=== PATIENT | male | born 1935 | race Caucasian/White ===

== ENCOUNTER 2024-10-07 10:01 | Outpatient (CLI) | payer MEDICARE, BC, SELFPAY | END 2024-10-07 10:02 | disposition home or self-care (01) | LOC: AMB 10-20 00:59 | PROVIDERS: Visit Provider Emergency Medicine | DX: I95.9 Hypotension, unspecified (principal) | CPT/HCPCS: A0425; A0427 ==

== ENCOUNTER 2024-10-30 16:17 | Inpatient (IN) | payer MEDICARE, BC, SELFPAY ==
[2024-10-30] VITALS (45 sets, daily range): BP systolic 81–107; BP diastolic 40–65; PULSE 63–96; RESP 16–18; TEMP 36.4–37.2; O2SAT 89–97; BMI 29.0; BMI 29.2
--- NOTE | 2024-10-30 16:36 | ED.GENADULT ---
HPI - General Adult General Time Seen by Provider: 16:37 Date Seen: 10/30/24 Chief complaint: Unspecified Complaint, Adult Stated complaint: Sent from [facility], elev WBC, lack of appetite Time Seen by Provider: 10/30/24 16:36 Source: patient, family, RN notes reviewed and old records reviewed Mode of arrival: EMS Limitations: no limitations History of Present Illness HPI narrative: 89-year-old male who presents today from detention with concern for decreased appetite, and labs today with elevated white blood cell count. Patient is here with son who assists with history. Patient self has no complaints. He denies cough, nasal congestion, fever, chills, weakness, nausea, vomiting, diarrhea, abdominal pain, chest pain, shortness of breath. Related Data Home Medications ?Medication ?Instructions ?Recorded ?Confirmed digoxin 125 mcg (0.125 mg) tablet 125 mcg PO DAILY 10/30/24 10/30/24 furosemide 40 mg tablet 40 mg PO DAILY 10/30/24 10/30/24 glimepiride 2 mg tablet 2 mg PO DAILY 10/30/24 10/30/24 metformin 1,000 mg tablet 500 mg PO BID 10/30/24 10/30/24 metoprolol tartrate 100 mg tablet 200 mg PO BID 10/30/24 10/30/24 polyethylene glycol 3350 17 17 g PO DAILY 10/30/24 10/30/24 gram/dose oral powder (ClearLax) sennosides 8.6 mg capsule (senna) 8.6 mg PO BID 10/30/24 10/30/24 simvastatin 80 mg tablet 80 mg PO DAILY 10/30/24 10/30/24 warfarin 5 mg tablet mg PO 10/30/24 Allergies Allergy/AdvReac Type Severity Reaction Status Date / Time No Known Drug Allergies Allergy Verified 10/30/24 16:35 Exam Narrative: Exam Narrative: General: Well-developed and well-nourished, no acute distress Head: Atraumatic and normocephalic Eyes: Pupils are equal reactive, extraocular motions intact, conjunctiva clear ENT: External nose and ears are normal, posterior pharynx without erythema or exudate Neck: No midline cervical tenderness, full spontaneous range of motion the neck, trachea midline, no adenopathy Heart: Irregular with 3 of 6 systolic murmur Lungs: Clear to auscultation bilaterally without wheezes or crackles Abdomen: Soft, nontender, nondistended with active bowel sounds Musculoskeletal: No tenderness, deformity, or edema Neurologic: Awake, alert, and oriented x3, no gross focal neurologic deficits, cranial nerves intact as tested Psych: Mood and affect are appropriate Skin: No rashes. 2 cm ulcer on the 5th metatarsal head on the right, black eschar but no surrounding erythema or purulent drainage Const: Vital Signs, click to edit/add: Vital Signs - 24 hr 10/30/24 16:25 10/30/24 17:42 10/30/24 17:43 Temperature 98.9 F Pulse Rate 90 82 Pulse Rate [Pulse Oximeter] 85 Respiratory Rate 16 Blood Pressure 98/56 L Blood Pressure [Ri ght Upper Arm] 92/55 L Pulse Oximetry 94 93 90 Oxygen Delivery Me thod Room Air 10/30/24 17:45 10/30/24 17:48 10/30/24 17:49 Temperature Pulse Rate 88 89 96 Pulse Rate [Pulse Oximeter] Respiratory Rate Blood Pressure 89/64 L Blood Pressure [Ri ght Upper Arm] Pulse Oximetry 90 90 90 Oxygen Delivery Me thod 10/30/24 18:00 10/30/24 18:01 10/30/24 18:02 Temperature Pulse Rate 95 86 82 Pulse Rate [Pulse Oximeter] Respiratory Rate Blood Pressure 97/59 L 85/40 L Blood Pressure [Ri ght Upper Arm] Pulse Oximetry 92 91 94 Oxygen Delivery Me thod 10/30/24 18:12 10/30/24 18:15 10/30/24 18:22 Temperature Pulse Rate 79 92 82 Pulse Rate [Pulse Oximeter] Respiratory Rate Blood Pressure 94/49 L 89/46 L Blood Pressure [Ri ght Upper Arm] Pulse Oximetry 91 94 92 Oxygen Delivery Me thod 10/30/24 18:43 10/30/24 18:44 10/30/24 18:45 Temperature Pulse Rate 92 84 88 Pulse Rate [Pulse Oximeter] Respiratory Rate Blood Pressure 96/52 L Blood Pressure [Ri ght Upper Arm] Pulse Oximetry 95 92 94 Oxygen Delivery Me thod 10/30/24 18:52 10/30/24 18:53 10/30/24 19:00 Temperature Pulse Rate 86 85 74 Pulse Rate [Pulse Oximeter] Respiratory Rate Blood Pressure 88/61 L Blood Pressure [Ri ght Upper Arm] Pulse Oximetry 89 [address] thod 10/30/24 19:02 Temperature Pulse Rate 81 Pulse Rate [Pulse Oximeter] Respiratory Rate Blood Pressure 91/50 L Blood Pressure [Ri ght Upper Arm] Pulse Oximetry [address] thod Course Course ED Course: Reviewed most recent hospital admission from October 07 when patient was admitted for 8 days with small-bowel obstruction, also at that time found to have hypotension with systolic blood pressure in the 80s, at time of discharge blood pressure 120-130/60-70, it appears that amlodipine and lisinopril were both discontinued at that visit. I also reviewed prior admission from September 23 when patient was admitted with an ischemic stroke with subsequent small hemorrhagic transformation. Reviewed outpatient labs today which demonstrated white blood cell count 16.6, hemoglobin 12.8, INR 1.6, normal basic panel, normal urinalysis. Patient presents today with concern for decreased appetite taste in hypotension. On initial exam here, hypotensive but otherwise finally stable. Patient has no complaints and no localizing symptoms including no abdominal tenderness, no respiratory distress, clear lungs. Due to hypotension and elevated white blood cell count, concern for sepsis, lactate and procalcitonin ordered. Chest x-ray ordered as well. Chest x-ray independently interpreted by me without acute infiltrate or effusion. Reevaluation(s) Time of Reevaluation #1: 18:03 Reevaluation #1: Monitor shows run of about 8 beats of what could be ventricular tachycardia, patient was asymptomatic during this time. Labs are pending. Patient remains hypotensive. Additional fluid bolus ordered Time of Reevaluation #2: 18:16 Reevaluation #2: Labs independently interpreted by me with lactate 2.1. Given leukocytosis and hypotension, although patient is well-appearing, concern for sepsis. Zosyn and vancomycin ordered an anticipated admission. Time of Reevaluation #3: 19:02 Reevaluation #3: Labs independently interpreted by me with normal hepatic panel,, elevated procalcitonin at [address] scan of the abdomen and pelvis independently interpreted by me without acute findings, CT scan of the chest independently interpreted by me without acute abnormality. Care discussed with Bethany Gutierrez PA-C hospitalist for admission. Additional Reevaluation(s): 8:20 p.m. reviewed radiology interpretation of CT scan which is not demonstrate acute findings other than some prominent nondilated loops of small bowel in the abdomen possibly reflect enteritis, patient with no vomiting, abdominal pain, or diarrhea. Patient updated with findings and plan, pressures remain little bit low and did update hospitalist that patient may need pressors. He has received 1.5 L of fluid so far, additional fluids ordered. Vital Signs Vital signs: Initial Vital Signs Temperature 98.9 F 10/30/24 16:25 Temperature Source Temporal Artery Scan 10/30/24 16:25 Pulse Rate 85 10/30/24 16:25 Respiratory Rate 16 10/30/24 16:25 Blood Pressure 92/55 L 10/30/24 16:25 Blood Pressure Mean 67 L 10/30/24 16:25 Blood Pressure Position Sitting 10/30/24 16:25 Pulse Oximetry 94 10/30/24 16:25 Oxygen Delivery Method Room Air 10/30/24 16:25 Vital Signs Temperature 98.9 F 10/30/24 16:25 Pulse Rate 85 10/30/24 16:25 Respiratory Rate 16 10/30/24 16:25 Blood Pressure 92/55 L 10/30/24 16:25 Pulse Oximetry 94 10/30/24 16:25 Oxygen Delivery Method Room Air 10/30/24 16:25 Temperature 98.9 F 10/30/24 16:25 Pulse Rate 81 10/30/24 19:02 Respiratory Rate 16 10/30/24 16:25 Blood Pressure 91/50 L 10/30/24 19:02 Pulse Oximetry 93 10/30/24 19:02 Oxygen Delivery Method Room Air 10/30/24 16:25 Medications Administered Medications: Generic Name Dose Route Start Last Admin Trade Name Freq PRN Reason Stop Dose Admin Sodium Chloride 1,000 mls @ 1,000 mls/hr 10/30/24 20:00 10/30/24 20:05 0.9 % Sodium Chloride 1000 Ml IV 10/30/24 20:59 1,000 mls/hr .Q1H CHUY Administration Discontinued Medications Generic Name Dose Route Start Last Admin Trade Name Freq PRN Reason Stop Dose Admin Sodium Chloride 500 mls @ 500 mls/hr 10/30/24 16:50 10/30/24 18:15 0.9 % Sodium Chloride 500 Ml IV 10/30/24 17:49 Infused .Q1H ONE Infusion Sodium Chloride 1,000 mls @ 1,000 mls/hr 10/30/24 18:15 10/30/24 19:00 0.9 % Sodium Chloride 1000 Ml IV 10/30/24 19:14 Infused .Q1H CHUY Infusion Piperacillin Sod/Tazobactam 100 mls @ 100 mls/hr 10/30/24 18:16 10/30/24 19:45 Sod 3.375 gm/ Sodium Chloride IVPB 10/30/24 18:17 Infused ONCE ONE Infusion Vancomycin HCl 2,000 mg/ 520 mls @ 260 mls/hr 10/30/24 18:16 10/30/24 19:45 Sodium Chloride IVPB 10/30/24 20:15 260 mls/hr ONCE ONE Administration Protocol Medical Decision Making Lab Data Labs: Lab Results 10/30/24 Range/Units 17:50 Lactate 2.1 H (0.5-1.9) mmol/L Magnesium 2.0 (1.5-2.6) mg/dL Total Bilirubin 0.8 (0.1-1.5) mg/dL Direct Bilirubin 0.3 (0.0-0.5) mg/dL AST 59 H (12-35) U/L ALT 23 (4-50) U/L Alkaline Phosphatase 80 (40-150) U/L Total Protein 6.7 (6.0-8.3) g/dL Albumin 3.5 (3.3-5.0) g/dL Lipase 121 (23-300) U/L Procalcitonin 37.90 H (<0.50) ng/mL Critical Care Time Critical Care Time Critical Care Time: Yes (Sepsis, multiple fluid boluses and multiple antibiotic) Attestation: The patient required my highest level preparedness to intervene emergently and I personally spent this critical care time directly and personally managing the patient. This critical care time included: Obtaining a history; Examining the patient; Pulse oximetry; Ordering and reviewing of studies; Arranging urgent treatment with development of a management plan; Evaluation of patients response to treatment; Frequent reassessment discussions with other providers. This critical care time was performed to assess and manage the high probability of imminent life-threatening deterioration that could result in multiorgan failure. It was exclusive of separate billable procedures and treating other patients and teaching time. Total Critical Care Time in Minutes: 90 Discharge Plan Discharge Clinical Impression: Sepsis, Anticoagulated on Coumadin, Diabetes type 2, H/O: CVA (cerebrovascular accident), Diabetic foot ulcer Patient Disposition: Admitted As Observation
--- NOTE | 2024-10-30 16:49 | CRLHL7_ITS ---
For Patients: As a result of the Century Cures Act, medical imaging exams and procedure reports are released immediately into your electronic medical record. You may view this report before your referring provider. If you have questions, please contact your health care provider. INDICATION: Weakness, leukocytosis TECHNIQUE: Chest radiograph 2 views COMPARISON: None FINDINGS: The sensitivity and specificity of the exam are moderately limited by the patient`s body habitus. Mediastinum: The central pulmonary arteries are near the upper limits of normal in size. Mild to moderate cardiomegaly is noted. Lung: Minimal bibasilar atelectasis is seen. No sign of pleural effusion seen. No pneumothorax is identified. Bone and Soft tissue: Unremarkable for age. IMPRESSION: 1. Mild to moderate cardiomegaly is noted. Dictated by Ramírez Abbott MD @ 10/30/2024 5:19:57 PM Dictated by: Ramírez Abbott MD @ 10/30/2024 17:19:58 (Electronically Signed)
[2024-10-30] MEDS: 0.9 % SODIUM CHLORIDE 500 ML 500 ML IV (17:40)
[2024-10-30] MEDS: 0.9 % SODIUM CHLORIDE 1000 ml 1,000 ML IV ×2 (18:05→20:05)
[2024-10-30 18:08] LABS: Lactate* 2.1 mmol/L (0.5-1.9)
--- NOTE | 2024-10-30 18:10 | CRLHL7_ITS ---
For Patients: As a result of the 21st Century Cures Act, medical imaging exams and procedure reports are released immediately into your electronic medical record. You may view this report before your referring provider. If you have questions, please contact your health care provider. INDICATION: Sepsis. TECHNIQUE: CT chest, abdomen, and pelvis acquired with mL Isovue 370 contrast. COMPARISON: None available. FINDINGS: CHEST: Lungs and pleura: Few scattered punctate calcified and noncalcified pulmonary nodules measure up to 0.4 cm. No focal consolidation. Heart and vessels: Mild cardiomegaly, no pericardial effusion. Atherosclerotic coronary artery calcifications. No large central pulmonary embolus. Thyroid and lower neck: No suspicious thyroid nodule. Mediastinum/maira: No lymphadenopathy. Chest wall: No axillary lymphadenopathy. ABDOMEN/PELVIS: Liver: Scattered punctate calcified granulomas. Indeterminate 1.9 cm hypodense lesion in segment 7 (series 7, image 56). Gallbladder and bile ducts: Unremarkable. Pancreas: Unremarkable. Spleen: Wedge-shaped hypodensity in the upper pole of the spleen. There is overlying capsular retraction. Adrenal glands: Indeterminate bilateral adrenal nodules, measuring up to 1.3 cm on the right. Kidneys: Kidneys enhance symmetrically, without hydronephrosis. Too small to characterize hypodense bilateral renal lesions. Retroperitoneum: No lymphadenopathy. Bowel and mesentery: Bowel is not obstructed. No significant ascites, no pneumoperitoneum. Normal appendix. Few loops of prominent nondilated small bowel in the left lower quadrant of the abdomen, nonspecific, may reflect enteritis. Bladder: Unremarkable for degree of distention. Reproductive organs: Post prostatectomy. Pelvic lymph nodes: Prior pelvic lymph node dissection. No pathologically enlarged lymph node. Vessels: Atherosclerotic calcifications. Abdominal wall: No acute abdominal wall abnormality. Bones: Dense sclerotic lesions in the bilateral sacral ala. Few scattered additional punctate sclerotic lesions throughout the axial and appendicular skeleton. Multilevel degenerative changes of the spine. Bones are osteopenic. Bilateral L5 pars defects. IMPRESSION: 1. Few loops of prominent but nondilated small bowel in the left lower quadrant of the abdomen, nonspecific, may reflect enteritis. 2. Wedge-shaped hypodensity in the upper pole of the spleen, which may reflect a small splenic infarct. However, there is also overlying capsular retraction, suggesting that this is not an acute process. Comparison with any prior studies would be helpful. 3. Indeterminate 1.9 cm hypodense lesion in segment 7 of the liver. Indeterminate adrenal nodules measuring up to 1.3 cm on the right. Recommend further evaluation with MRI, on a nonemergent basis. 4. Few scattered punctate pulmonary nodules measuring up to 0.4 cm. Recommend follow-up CT chest in 3-6 months. 5. Scattered small sclerotic osseous lesions throughout the axial and appendicular skeleton. This may reflect multiple bone islands or osseous metastases. Again, comparison with prior studies would be helpful. Please note that all CT scans at this facility use dose modulation, iterative reconstruction, and/or weight-based dosing when appropriate to reduce radiation dose to as low as reasonably achievable. Dictated by Kamran Baker MD @ 10/30/2024 8:06:21 PM (Electronically Signed)
[2024-10-30 18:27] LABS: Albumin* 3.5 g/dL (3.3-5.0)
[2024-10-30 18:29] LABS: Alanine Aminotransferase* 23 U/L (4-50); Alkaline Phosphatase* 80 U/L (40-150); Aspartate Amino Transferase* 59 U/L (12-35); Bilirubin Direct* 0.3 mg/dL (0.0-0.5); Bilirubin Total* 0.8 mg/dL (0.1-1.5); Total Protein* 6.7 g/dL (6.0-8.3)
[2024-10-30 18:30] LABS: Lipase* 121 U/L (23-300)
[2024-10-30] MEDS: PIPERACILLIN/TAZOBACTAM 3.375 GM in 0.9 % SODIUM CHLORIDE Mini-bag 100 ML IVPB (18:44)
--- NOTE | 2024-10-30 19:49 | ED.NURSE ---
Received call from [facility] requesting update on pt. Informed February - facility nurse that pt will be admitted.
--- NOTE | 2024-10-30 21:02 | P.IMHP_ITS ---
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 Patient was sent to the ED from [facility] where labs were drawn today with an elevated WBC. Only complaint patient can offer is a decreased appetite. Otherwise denies headache or dizziness. Denies recent fevers or chills. Denies chest pain or shortness of breath. Denies cough or congestion. Denies abdominal pain, nausea, vomiting or diarrhea. Had a normal bowel movement this morning. Denies flank pain. Denies change in urination or UTI symptoms. Denies extremity pain. In the ED, patient was noted to have a WBC of 16.64, a lactate of 2.1, and a procalcitonin of 37.9. Urinalysis essentially unremarkable. CT chest/abdomen/pelvis essentially unremarkable for acute infectious etiology. BC x2 and urine culture are pending. Patient noted to be hypotensive, with SBP in the 80s, MAP > 63. Patient was started on IV vancomycin and Zosyn. Patient is a nonsmoker. Drinks 1 beer maybe per week. Request to be DNR/DNI. Of note, patient hospitalized at [facility] 09/23-09/26 with thrombolytics stroke to the left occipital lobe. Discharged to [facility] for cares. Hospitalized 10/07-10/15 at [facility] with mechanical small bowel obstruction which resolved with conservative therapy. Review of Systems Narrative: REVIEW OF SYSTEMS: Complete review of systems performed and negative unless otherwise stated in HPI or below. [facility] Medical History (Updated 10/31/24 @ 00:23 by Bethany Chandra PA-C) Cardiomegaly ?I51.7 - Cardiomegaly (ICD-10) Basal cell carcinoma ?C44.91 - Basal cell carcinoma of skin, unspecified (ICD-10) SBO (small bowel obstruction) ?K56.609 - Unspecified intestinal obstruction, unspecified as to partial versus complete obstruction (ICD-10) Obesity (BMI 30-39.9) ?E66.9 - Obesity, unspecified (ICD-10) Hyperlipidemia ?E78.5 - Hyperlipidemia, unspecified (ICD-10) Atherosclerotic heart disease of [place] coronary artery without angina pectoris ?I25.10 - Atherosclerotic heart disease of [place] coronary artery without angina pectoris (ICD-10) Ischemic stroke ?I63.9 - Cerebral infarction, unspecified (ICD-10) Hypertension ?I10 - Essential (primary) hypertension (ICD-10) Atrial fibrillation ?I48.91 - Unspecified atrial fibrillation (ICD-10) (HFpEF) heart failure with preserved ejection fraction ?I50.30 - Unspecified diastolic (congestive) heart failure (ICD-10) Social History What is your current living situation?: I presently have a place to live Problems where you live: no known problems Problems where you live details: na In the past 12 months, utilities in danger of being shut off: no In the past 12 mos, have been you worried that your food would run out before you had money to buy more?: never true In the past 12 mos, the food you bought just didn't last and you didn't have money to buy more?: never true Smoking Status: Never smoker Do you use any of these nicotine containing products: None How often do you have a drink containing alcohol: monthly or less Alcohol type: beer How many standard drinks containing alcohol do you have on a typical day: 1 or 2 How often do you have six or more drinks on one occasion: Never AUDIT-C Alcohol total score: 1 Non-prescribed substance use: denies use How often does anyone, including family, friends and others, physically hurt you : never How often does anyone, including family, friends and others, insult or talk down to you: never How often does anyone, including family, friends and others, threaten you with harm: never How often does anyone, including family, friends and others, scream or curse at you: never Meds Home Medications and Allergies Home Medications ?Medication ?Instructions ?Recorded ?Confirmed ?Type digoxin 125 mcg (0.125 mg) tablet 125 mcg PO DAILY 10/30/24 10/30/24 History furosemide 40 mg tablet 40 mg PO DAILY 10/30/24 10/30/24 History glimepiride 2 mg tablet 2 mg PO DAILY 10/30/24 10/30/24 History metformin 1,000 mg tablet 500 mg PO BID 10/30/24 10/30/24 History metoprolol tartrate 100 mg tablet 200 mg PO BID 10/30/24 10/30/24 History polyethylene glycol 3350 17 17 g PO DAILY 10/30/24 10/30/24 History gram/dose oral powder (ClearLax) sennosides 8.6 mg capsule (senna) 8.6 mg PO BID 10/30/24 10/30/24 History simvastatin 80 mg tablet 80 mg PO DAILY 10/30/24 10/30/24 History warfarin 5 mg tablet mg PO 10/30/24 History Allergies Allergy/AdvReac Type Severity Reaction Status Date / Time No Known Drug Allergies Allergy Verified 10/30/24 16:35 Exam Narrative: Exam Narrative: PHYSICAL EXAM General: Pleasant, conversant, NAD HEENT: Normocephalic, atraumatic, sclera white, EOMI, oral mucosa moist Cardiovascular: RRR, S1S2. No pitting edema Pulmonary: CTA bilaterally without rhonchi, rales, expiratory wheezes. No dyspnea on room air Abdominal: Soft, nondistended, NTTP Neurological: Alert, answering questions appropriately, cranial nerves intact, no focal findings Extremities: Right foot with ulceration x2 plantar surface. Eschar lateral ulcer. Dry without drainage or bleeding. Skin: Warm, dry. Const: Vital Signs, click to edit/add: Vital Signs - 24 hr 10/30/24 16:25 10/30/24 17:42 10/30/24 17:43 Temperature 98.9 F Pulse Rate 90 82 Pulse Rate [Pulse Oximeter] 85 Respiratory Rate 16 Blood Pressure 98/56 L Blood Pressure [Ri ght Upper Arm] 92/55 L Pulse Oximetry 94 93 90 Oxygen Delivery Me thod Room Air 10/30/24 17:45 10/30/24 17:48 10/30/24 17:49 Temperature Pulse Rate 88 89 96 Pulse Rate [Pulse Oximeter] Respiratory Rate Blood Pressure 89/64 L Blood Pressure [Ri ght Upper Arm] Pulse Oximetry 90 90 90 Oxygen Delivery Me thod 10/30/24 18:00 10/30/24 18:01 12/10/24 18:02 Temperature Pulse Rate 95 86 82 Pulse Rate [Pulse Oximeter] Respiratory Rate Blood Pressure 97/59 L 85/40 L Blood Pressure [Ri ght Upper Arm] Pulse Oximetry 92 91 94 Oxygen Delivery Me thod 10/30/24 18:12 10/30/24 18:15 10/30/24 18:22 Temperature Pulse Rate 79 92 82 Pulse Rate [Pulse Oximeter] Respiratory Rate Blood Pressure 94/49 L 89/46 L Blood Pressure [Ri ght Upper Arm] Pulse Oximetry 91 94 92 Oxygen Delivery Me thod 10/30/24 18:43 10/30/24 18:44 10/30/24 18:45 Temperature Pulse Rate 92 84 88 Pulse Rate [Pulse Oximeter] Respiratory Rate Blood Pressure 96/52 L Blood Pressure [Ri ght Upper Arm] Pulse Oximetry 95 92 94 Oxygen Delivery Me thod 10/30/24 18:52 10/30/24 18:53 10/30/24 19:00 Temperature Pulse Rate 86 85 74 Pulse Rate [Pulse Oximeter] Respiratory Rate Blood Pressure 88/61 L Blood Pressure [Ri ght Upper Arm] Pulse Oximetry 89 95 89 Oxygen Delivery Me thod 10/30/24 19:02 10/30/24 19:03 10/30/24 19:12 Temperature Pulse Rate 81 77 86 Pulse Rate [Pulse Oximeter] Respiratory Rate Blood Pressure 91/50 L 93/57 L Blood Pressure [Ri ght Upper Arm] Pulse Oximetry 93 96 95 Oxygen Delivery Me thod 10/30/24 19:15 10/30/24 19:22 10/30/24 19:30 Temperature Pulse Rate 75 85 73 Pulse Rate [Pulse Oximeter] Respiratory Rate Blood Pressure 90/53 L Blood Pressure [Ri ght Upper Arm] Pulse Oximetry 92 94 94 Oxygen Delivery Me thod 10/30/24 19:34 10/30/24 19:41 10/30/24 19:45 Temperature Pulse Rate 82 81 78 Pulse Rate [Pulse Oximeter] Respiratory Rate Blood Pressure 89/52 L Blood Pressure [Ri ght Upper Arm] Pulse Oximetry 91 93 96 Oxygen Delivery Me thod 10/30/24 19:51 10/30/24 20:00 10/30/24 20:04 Temperature Pulse Rate 74 79 82 Pulse Rate [Pulse Oximeter] Respiratory Rate Blood Pressure 91/48 L Blood Pressure [Ri ght Upper Arm] Pulse Oximetry 92 92 94 Oxygen Delivery Me thod 10/30/24 20:07 10/30/24 20:11 10/30/24 20:15 Temperature Pulse Rate 83 77 73 Pulse Rate [Pulse Oximeter] Respiratory Rate Blood Pressure 95/51 L 96/59 L Blood Pressure [Ri ght Upper Arm] Pulse Oximetry 94 95 96 Oxygen Delivery Me thod 10/30/24 20:21 10/30/24 20:30 10/30/24 20:31 Temperature Pulse Rate 72 74 76 Pulse Rate [Pulse Oximeter] Respiratory Rate Blood Pressure 99/62 107/65 Blood Pressure [Ri ght Upper Arm] Pulse Oximetry 93 90 97 Oxygen Delivery Me thod 10/30/24 20:45 Temperature 98.9 F Pulse Rate Pulse Rate [Pulse Oximeter] Respiratory Rate Blood Pressure Blood Pressure [Ri ght Upper Arm] Pulse Oximetry Oxygen Delivery Me thod Hospitalist - H&P: Result Labs Labs: Liver Function 10/30/24 Range/Units 17:50 Total Bilirubin 0.8 (0.1-1.5) mg/dL Direct Bilirubin 0.3 (0.0-0.5) mg/dL AST 59 H (12-35) U/L ALT 23 (4-50) U/L Alkaline Phosphatase 80 (40-150) U/L Albumin 3.5 (3.3-5.0) g/dL Imaging CT Chest/Ab/Pelvis: Attestation: I have reviewed the pertinent imaging results. Radiologist's impression: CHEST: Lungs and pleura: Few scattered punctate calcified and noncalcified pulmonary nodules measure up to 0.4 cm. No focal consolidation. Heart and vessels: Mild cardiomegaly, no pericardial effusion. Atherosclerotic coronary artery calcifications. No large central pulmonary embolus. Thyroid and lower neck: No suspicious thyroid nodule. Mediastinum/maira: No lymphadenopathy. Chest wall: No axillary lymphadenopathy. ABDOMEN/PELVIS: Liver: Scattered punctate calcified granulomas. Indeterminate 1.9 cm hypodense lesion in segment 7 (series 7, image 56). Gallbladder and bile ducts: Unremarkable. Pancreas: Unremarkable. Spleen: Wedge-shaped hypodensity in the upper pole of the spleen. There is overlying capsular retraction. Adrenal glands: Indeterminate bilateral adrenal nodules, measuring up to 1.3 cm on the right. Kidneys: Kidneys enhance symmetrically, without hydronephrosis. Too small to characterize hypodense bilateral renal lesions. Retroperitoneum: No lymphadenopathy. Bowel and mesentery: Bowel is not obstructed. No significant ascites, no pneumoperitoneum. Normal appendix. Few loops of prominent nondilated small bowel in the left lower quadrant of the abdomen, nonspecific, may reflect enteritis. Bladder: Unremarkable for degree of distention. Reproductive organs: Post prostatectomy. Pelvic lymph nodes: Prior pelvic lymph node dissection. No pathologically enlarged lymph node. Vessels: Atherosclerotic calcifications. Abdominal wall: No acute abdominal wall abnormality. Bones: Dense sclerotic lesions in the bilateral sacral ala. Few scattered additional punctate sclerotic lesions throughout the axial and appendicular skeleton. Multilevel degenerative changes of the spine. Bones are osteopenic. Bilateral L5 pars defects. IMPRESSION: 1. Few loops of prominent but nondilated small bowel in the left lower quadrant of the abdomen, nonspecific, may reflect enteritis. 2. Wedge-shaped hypodensity in the upper pole of the spleen, which may reflect a small splenic infarct. However, there is also overlying capsular retraction, suggesting that this is not an acute process. Comparison with any prior studies would be helpful. 3. Indeterminate 1.9 cm hypodense lesion in segment 7 of the liver. Indeterminate adrenal nodules measuring up to 1.3 cm on the right. Recommend further evaluation with MRI, on a nonemergent basis. 4. Few scattered punctate pulmonary nodules measuring up to 0.4 cm. Recommend follow-up CT chest in 3-6 months. 5. Scattered small sclerotic osseous lesions throughout the axial and appendicular skeleton. This may reflect multiple bone islands or osseous metastases. Again, comparison with prior studies would be helpful. Chest x-ray: Attestation: I have reviewed the pertinent imaging results. Radiologist's impression: FINDINGS: The sensitivity and specificity of the exam are moderately limited by the patient`s body habitus. Mediastinum: The central pulmonary arteries are near the upper limits of normal in size. Mild to moderate cardiomegaly is noted. Lung: Minimal bibasilar atelectasis is seen. No sign of pleural effusion seen. No pneumothorax is identified. Bone and Soft tissue: Unremarkable for age. IMPRESSION: 1. Mild to moderate cardiomegaly is noted. Assessment and Plan Assessment and plan (1) Sepsis: Problem comment: -WBC 16.64 with left shift, lactate 2.1 improved to 1.0 following IVF, SBP < 90 -source not yet identified. CXR, CT chest abdomen pelvis without acute etiology. UA unremarkable. Suspect possible source from right foot or possible bacteremia -continue IV vancomycin and Zosyn -BC x2 pending, UC pending -has received 3 L IVF, continue maintenance fluids 100 mL, 250 mL bolus p.r.n. monitoring for fluid overload -consider starting pressors, contacting hospital service if SBP x2 < 90 or MAP < 60 as discussed with nursing staff Status: Acute (2) Hypotension: Problem comment: -in setting of sepsis -history of hypotension in previous hospitalizations as well which responded to IVF -has received 3 L IVF, continue maintenance fluids, bolus p.r.n., monitoring for fluid overload -consider starting pressors, contacting hospital service if SBP x2 < 90 or MAP < 60 as discussed with nursing staff Status: Acute (3) Diabetic foot ulcer: Problem comment: -plantar surface right foot. Mild erythema noted dorsal aspect -evaluated by Podiatry at [facility] during hospitalization and of September. Both of these were debrided. They did not appear infected clinically or by x-ray. The fifth MTPJ callus did probe to 0.3 cm after debridement. He had palpable pedal pulses. Recommending boot and follow-up with Dr. Garcia montejo as scheduled on 11/22/2023 in [place]. -MRI in the morning -podiatry consult -continue vancomycin and Zosyn Status: Acute (4) (HFpEF) heart failure with preserved ejection fraction: Problem comment: Echocardiogram 09/24/2024 Final Impressions: 1. Normal LV size, borderline wall thickness, estimated EF of 55 - 60%. 2. Normal RV size and systolic function. 3. Severe biatrial enlargement. 4. 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 5. The mitral valve is normal, moderate regurgitation. 6. Moderate-severe tricuspid regurgitation. 7. IVC is not well-visualized: unable to estimate RA and PA pressures. 8. 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 -monitor for fluid overload in setting of fluid resuscitation. Holding home furosemide in setting of hypotension Status: Acute (5) Hypertension: Problem comment: -hold metoprolol and furosemide for now, resuming when pressures improve Status: Acute (6) Hyperlipidemia: Problem comment: -continue statin Status: Acute (7) Diabetes type 2: Problem comment: -most recent A1c 6.3 -hold metformin, continue glimepiride -glucose checks ACHS, ISS Status: Acute (8) Atrial fibrillation: Problem comment: -continue digoxin -continue warfarin, pharmacy to dose. INR 1.6 on admission. -telemetry Status: Acute (9) Anticoagulated on Coumadin: Problem comment: -pharmacy to dose. 2.5mg given on 10/30 Status: Acute (10) Cardiomegaly: Problem comment: -noted on CXR 10/30 Status: Acute (11) Pulmonary nodules: Problem comment: -CT shows Few scattered punctate pulmonary nodules measuring up to 0.4 cm. Recommend follow-up CT chest in 3-6 months. Status: Acute (12) Lesion of liver: Problem comment: -CT shows Indeterminate 1.9 cm hypodense lesion in segment 7 of the liver. Indeterminate adrenal nodules measuring up to 1.3 cm on the right. Recommend further evaluation with MRI, on a nonemergent basis. Status: Acute (13) Adrenal nodule: Problem comment: -CT shows Indeterminate 1.9 cm hypodense lesion in segment 7 of the liver. Indeterminate adrenal nodules measuring up to 1.3 cm on the right. Recommend further evaluation with MRI, on a nonemergent basis. Status: Acute Total Time Spent Total Time Spent: Total time spent caring for the patient today was 100 minutes. This includes time spent for the visit reviewing the chart, time spent during the visit, time spent after the visit and documentation and planning in coordination of care.
--- NOTE | 2024-10-30 21:06 | ED.NURSE ---
Pt report given to bruce LION. Pt to CCU2.
[2024-10-30] MEDS: 0.9 % SODIUM CHLORIDE 1000 ml 1,000 ML 150 ML IV (22:04)
[2024-10-30] MEDS: SODIUM CHLORIDE 0.9 % (FLUSH) 10 ML SYRINGE 5 ML IVF (22:06)
[2024-10-30] MEDS: WARFARIN 3 MG TABLET PO (23:40)
[2024-10-31] VITALS (33 sets, daily range): BP systolic 73–137; BP diastolic 40–91; PULSE 66–102; RESP 16–20; TEMP 36.7–37.2; O2SAT 90–96
[2024-10-31] MEDS: 0.9 % SODIUM CHLORIDE 1000 ml 1,000 ML 100 ML IV ×2 (00:16→13:56)
[2024-10-31] MEDS: PIPERACILLIN/TAZOBACTAM 3.375 GM in 0.9 % SODIUM CHLORIDE Mini-bag 100 ML IVPB ×4 (02:02→20:11)
[2024-10-31] MEDS: 0.9 % SODIUM CHLORIDE 250 ml 250 ML IV (03:04)
--- NOTE | 2024-10-31 05:00 | PC.NURSE ---
Pt slept well during night. Pt denies pain, chest pain, headache, abd pain, N/V. ambulating to br with walker/SBA and tolerates activity very well. BP stable with SBP >90 and MAP >65 during night. tolerating PO intake.
--- NOTE | 2024-10-31 06:00 | CRLHL7_ITS ---
For Patients: As a result of the Century Cures Act, medical imaging exams and procedure reports are released immediately into your electronic medical record. You may view this report before your referring provider. If you have questions, please contact your health care provider. EXAM: MRI OF THE RIGHT FOOT, WITHOUT AND WITH IV CONTRAST CLINICAL INDICATION: Lateral forefoot wound. COMPARISON PLAIN FILMS: None. COMPARISON CROSS-SECTIONAL IMAGING STUDIES: None. TECHNICAL: Axial, sagittal and coronal T1, PD and STIR images precontrast. Postcontrast T1 weighted imaging with fat saturation. Contrast: Dotarem, 20 mL IV. FINDINGS: SOFT TISSUES JOINTS AND BONES: Broad ulceration at the plantar and lateral aspect of the 5th MTP joint with adjacent soft tissue thickening that abuts the 5th MTP joint. There is a minimal amount of reactive edema in the head of the 5th metatarsal. No cortical erosion or marrow replacement to suggest osteomyelitis. No effusion or synovitis to suggest septic arthritis at the 5th MTP joint. No subcutaneous abscess. Findings discussed with referring physician. Diffuse subcutaneous edema in the toes and foot. No fractures are evident. No evidence for avascular necrosis. Degenerative changes in the 1st and 2nd MTP and the 1st through 3rd TMT joints. TENDONS AND MUSCLES: No tenosynovitis. No tendon tear. Diffuse muscular atrophy and edema. IMPRESSION: 1. Ulceration at the plantar and lateral aspect of the 5th MTP joint. Minimal reactive edema in the head of the 5th metatarsal. No subcutaneous abscess, septic arthritis or osteomyelitis. 2. Diffuse subcutaneous edema in the toes and foot. 3. Degenerative changes in multiple MTP and TMT joints. 4. Diffuse muscular atrophy and edema. Dictated by Seymour Leal MD @ 10/31/2024 12:18:39 PM (Electronically Signed)
[2024-10-31 07:39] LABS: Hematocrit 33.7 % (37.0-53.0); Mean Corpuscular HGB Conc 33 gm/dL (32-36); Mean Corpuscular Hemoglobin 30 pg (26-34); Mean Corpuscular Volume 93 fL (80-100); Platelet Count* 202 K/uL (140-440); Red Blood Count 3.62 m/uL (4.30-5.90)
[2024-10-31 07:54] LABS: Slide Review Reflex No
[2024-10-31 08:05] LABS: Chloride* 106 mmol/L (96-114)
[2024-10-31 08:06] LABS: Potassium* 3.4 mmol/L (3.6-5.1); Sodium* 139 mmol/L (135-149)
[2024-10-31 08:09] LABS: Anion Gap 7 mEq/L (7-15); Blood Urea Nitrogen* 17 mg/dL (7-30); Calcium* 7.5 mg/dL (8.4-10.6); Carbon Dioxide* 26 mmol/L (20-32); Creatinine* 1.2 mg/dL (0.5-1.5); Estimated Glomerular Filt Rate 59 ml/min; Glucose* 81 mg/dL (60-115)
[2024-10-31 08:28] LABS: INR 1.51 (0.91-1.10); Prothrombin Time 19.2 Seconds
[2024-10-31 08:31] LABS: C Reactive Protein* 5.8 mg/dL (0.5-1.0)
[2024-10-31] MEDS: GLIMEPIRIDE 1 MG TABLET 2 MG PO (08:32)
[2024-10-31] MEDS: DIGOXIN 125 MCG TABLET PO (08:32)
[2024-10-31] MEDS: SIMVASTATIN 40 MG TABLET 80 MG PO (08:32)
[2024-10-31] MEDS: SODIUM CHLORIDE 0.9 % (FLUSH) 10 ML SYRINGE 5 ML IVF ×3 (08:34→20:59)
--- NOTE | 2024-10-31 14:53 | PM.IMPN1 ---
Progress Note: A&P Assessment and plan (1) Diabetic foot ulcer: Problem details: -plantar surface right foot. Mild erythema noted dorsal aspect -evaluated by Podiatry at [facility] during hospitalization and of September. Both of these were debrided. They did not appear infected clinically or by x-ray. The fifth MTPJ callus did probe to 0.3 cm after debridement. He had palpable pedal pulses. Recommending boot and follow-up with Dr. Garcia montejo as scheduled on 11/22/2023 in [place]. -MRI obtained 10/31/2024 demonstrated the followin. Ulceration at the plantar and lateral aspect of the 5th MTP joint. Minimal reactive edema in the head of the 5th metatarsal. No subcutaneous abscess, septic arthritis or osteomyelitis. 2. Diffuse subcutaneous edema in the toes and foot. 3. Degenerative changes in multiple MTP and TMT joints. 4. Diffuse muscular atrophy and edema. -podiatry consult obtained with bedside debridement undertaken -continue vancomycin and Zosyn for now as we await wound culture results Status: Acute (2) Sepsis: Problem details: -WBC 16.64 with left shift, lactate 2.1 improved to 1.0 following IVF, SBP < 90 -source not yet identified. CXR, CT chest abdomen pelvis without acute etiology. UA unremarkable. Suspect possible source from right foot or possible bacteremia -continue IV vancomycin and Zosyn -BC x2 pending, UC pending -received 3 L IVF, continue maintenance fluids 100 mL, 250 mL bolus p.r.n. monitoring for fluid overload -10/31/2024: Saline lock IV and restart him on a diet Status: Acute (3) Diabetes type 2: Problem details: -most recent A1c 6.3 -hold metformin, continue glimepiride -glucose checks ACHS, ISS Status: Acute (4) Anticoagulated on Coumadin: Problem details: -pharmacy to dose. Status: Acute (5) Atrial fibrillation: Problem details: -continue digoxin -continue warfarin, pharmacy to dose. INR 1.6 on admission. -telemetry -restart metoprolol but at a much lower dose of 50 mg p.o. b.i.d. compared to his usual 100 mg p.o. b.i.d. and monitor Status: Acute (6) (HFpEF) heart failure with preserved ejection fraction: Problem details: Echocardiogram 09/24/2024 Final Impressions: 1. Normal LV size, borderline wall thickness, estimated EF of 55 - 60%. 2. Normal RV size and systolic function. 3. Severe biatrial enlargement. 4. 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 5. The mitral valve is normal, moderate regurgitation. 6. Moderate-severe tricuspid regurgitation. 7. IVC is not well-visualized: unable to estimate RA and PA pressures. 8. 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 -monitor for fluid overload in setting of fluid resuscitation. -restart furosemide in the morning Status: Acute (7) Hyperlipidemia: Problem details: -continue statin Status: Acute Plan 1. Reviewed impression with patient and son as well as plan recommendations and they are agreeable 2. Proceed with plan as specified above 3. Will need outpatient podiatry follow-up with attention to offloading on the affected right lower extremity 4. 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 ?Patient was sent to the ED from [facility] where labs were drawn today with an elevated WBC. Only complaint patient can offer is a decreased appetite. Otherwise denies headache or dizziness. Denies recent fevers or chills. Denies chest pain or shortness of breath. Denies cough or congestion. Denies abdominal pain, nausea, vomiting or diarrhea. Had a normal bowel movement this morning. Denies flank pain. Denies change in urination or UTI symptoms. Denies extremity pain. ?In the ED, patient was noted to have a WBC of 16.64, a lactate of 2.1, and a procalcitonin of 37.9. Urinalysis essentially unremarkable. CT chest/abdomen/pelvis essentially unremarkable for acute infectious etiology. BC x2 and urine culture are pending. Patient noted to be hypotensive, with SBP in the 80s, MAP > 63. Patient was started on IV vancomycin and Zosyn. ?Patient is a nonsmoker. Drinks 1 beer maybe per week. Request to be DNR/DNI. ?Of note, patient hospitalized at [facility] 09/23-09/26 with thrombolytics stroke to the left occipital lobe. Discharged to [facility] for cares. Hospitalized 10/07-10/15 at [facility] with mechanical small bowel obstruction which resolved with conservative therapy.? Hospital day 2. Blood pressures normalized with the IV fluids and holding his antihypertensive medications. Additionally he was started empirically on IV vancomycin and IV piperacillin with tazobactam. He continues to indicate he feels well and no localizing symptoms. He acknowledges that he has had a wound on the plantar surface of his right foot for roughly the past 1 month. Denies any pain in association with the right foot ulcer. Acknowledges long-standing diabetes. Exam Narrative: Exam Narrative: I examined patient in his hospital room. Appears comfortable no acute distress. Somewhat hard of hearing but friendly, cooperative, articulate. Alert and oriented x3. No JVD or hepatojugular reflux. No head neck lymphadenopathy. Lungs are clear to auscultation. Heart tones with chaotic rhythm, normal S1-S2. Systolic murmur in right upper sternal border and left lower sternal border. No gallops or rubs. Abdomen with active bowel sounds, soft, nontender. Hemosiderin staining of the skin of bilateral lower extremities. Difficult to palpate pulses bilateral lower extremities. Diabetic foot ulcer right foot plantar surface sub 5th metatarsal head. I cleanse the wound with saline and gauze. I then use a cotton swab applicator to probe the wound. Wound measures about 0.5 cm deep, is 1 cm in diameter, has circumferential undermining with greatest length at the 11 o'clock position of 1 cm. Wound culture obtained. Const: Vital Signs, click to edit/add: Vital Signs - 24 hr 10/30/24 16:25 10/30/24 17:42 10/30/24 17:43 Temperature 98.9 F Pulse Rate 90 82 Pulse Rate [Pulse Oximeter] 85 Respiratory Rate 16 Blood Pressure 98/56 L Blood Pressure [Le ft Arm] Blood Pressure [Ri ght Upper Arm] 92/55 L Pulse Oximetry 94 93 90 Oxygen Delivery Me thod Room Air 10/30/24 17:45 10/30/24 17:48 10/30/24 17:49 Temperature Pulse Rate 88 89 96 Pulse Rate [Pulse Oximeter] Respiratory Rate Blood Pressure 89/64 L Blood Pressure [Le ft Arm] Blood Pressure [Ri ght Upper Arm] Pulse Oximetry 90 90 90 Oxygen Delivery Me thod 10/30/24 18:00 10/30/24 18:01 10/30/24 18:02 Temperature Pulse Rate 95 86 82 Pulse Rate [Pulse Oximeter] Respiratory Rate Blood Pressure 97/59 L 85/40 L Blood Pressure [Le ft Arm] Blood Pressure [Ri ght Upper Arm] Pulse Oximetry 92 91 94 Oxygen Delivery Me thod 10/30/24 18:12 10/30/24 18:15 10/30/24 18:22 Temperature Pulse Rate 79 92 82 Pulse Rate [Pulse Oximeter] Respiratory Rate Blood Pressure 94/49 L 89/46 L Blood Pressure [Le ft Arm] Blood Pressure [Ri ght Upper Arm] Pulse Oximetry 91 94 92 Oxygen Delivery Me thod 10/30/24 18:43 10/30/24 18:44 10/30/24 18:45 Temperature Pulse Rate 92 84 88 Pulse Rate [Pulse Oximeter] Respiratory Rate Blood Pressure 96/52 L Blood Pressure [Le ft Arm] Blood Pressure [Ri ght Upper Arm] Pulse Oximetry 95 92 94 Oxygen Delivery Me thod 10/30/24 18:52 10/30/24 18:53 10/30/24 19:00 Temperature Pulse Rate 86 85 74 Pulse Rate [Pulse Oximeter] Respiratory Rate Blood Pressure 88/61 L Blood Pressure [Le ft Arm] Blood Pressure [Ri ght Upper Arm] Pulse Oximetry 89 95 89 Oxygen Delivery Me thod 10/30/24 19:02 10/30/24 19:03 10/30/24 19:12 Temperature Pulse Rate 81 77 86 Pulse Rate [Pulse Oximeter] Respiratory Rate Blood Pressure 91/50 L 93/57 L Blood Pressure [Le ft Arm] Blood Pressure [Ri ght Upper Arm] Pulse Oximetry 93 96 95 Oxygen Delivery Me thod 10/30/24 19:15 10/30/24 19:22 10/30/24 19:30 Temperature Pulse Rate 75 85 73 Pulse Rate [Pulse Oximeter] Respiratory Rate Blood Pressure 90/53 L Blood Pressure [Le ft Arm] Blood Pressure [Ri ght Upper Arm] Pulse Oximetry 92 94 94 Oxygen Delivery Me thod 10/30/24 19:34 10/30/24 19:41 10/30/24 19:45 Temperature Pulse Rate 82 81 78 Pulse Rate [Pulse Oximeter] Respiratory Rate Blood Pressure 89/52 L Blood Pressure [Le ft Arm] Blood Pressure [Ri ght Upper Arm] Pulse Oximetry 91 93 96 Oxygen Delivery Me thod 10/30/24 19:51 10/30/24 20:00 10/30/24 20:04 Temperature Pulse Rate 74 79 82 Pulse Rate [Pulse Oximeter] Respiratory Rate Blood Pressure 91/48 L Blood Pressure [Le ft Arm] Blood Pressure [Ri ght Upper Arm] Pulse Oximetry 92 92 94 Oxygen Delivery Me thod 10/30/24 20:07 10/30/24 20:11 10/30/24 20:15 Temperature Pulse Rate 83 77 73 Pulse Rate [Pulse Oximeter] Respiratory Rate Blood Pressure 95/51 L 96/59 L Blood Pressure [Le ft Arm] Blood Pressure [Ri ght Upper Arm] Pulse Oximetry 94 95 96 Oxygen Delivery Me thod 10/30/24 20:21 10/30/24 20:30 10/30/24 20:31 Temperature Pulse Rate 72 74 76 Pulse Rate [Pulse Oximeter] Respiratory Rate Blood Pressure 99/62 107/65 Blood Pressure [Le ft Arm] Blood Pressure [Ri ght Upper Arm] Pulse Oximetry 93 90 97 Oxygen Delivery Me thod 10/30/24 20:45 10/30/24 21:24 10/30/24 21:24 Temperature 98.9 F 98.0 F Pulse Rate Pulse Rate [Pulse Oximeter] 71 Respiratory Rate 16 16 Blood Pressure Blood Pressure [Le ft Arm] 102/55 L Blood Pressure [Ri ght Upper Arm] Pulse Oximetry 94 97 Oxygen Delivery Me thod Room Air Room Air 10/30/24 21:45 10/30/24 22:00 10/30/24 22:30 Temperature 98.0 F 98 F Pulse Rate Pulse Rate [Pulse Oximeter] 71 67 Respiratory Rate 16 16 16 Blood Pressure Blood Pressure [Le ft Arm] 81/57 L 86/53 L Blood Pressure [Ri ght Upper Arm] Pulse Oximetry 94 92 92 Oxygen Delivery Me thod Room Air Room Air Room Air 10/30/24 23:00 10/30/24 23:00 10/30/24 23:17 Temperature Pulse Rate Pulse Rate [Pulse Oximeter] 67 81 74 Respiratory Rate 16 18 18 Blood Pressure Blood Pressure [Le ft Arm] 102/59 L 101/53 L Blood Pressure [Ri ght Upper Arm] Pulse Oximetry 93 93 Oxygen Delivery Me thod Room Air Room Air 10/30/24 23:21 10/30/24 23:30 10/31/24 00:00 Temperature 97.5 F L Pulse Rate 73 Pulse Rate [Pulse Oximeter] 63 76 Respiratory Rate 18 16 Blood Pressure Blood Pressure [Le ft Arm] 93/51 L 102/54 L Blood Pressure [Ri ght Upper Arm] Pulse Oximetry 94 95 Oxygen Delivery Me thod Room Air Room Air 10/31/24 00:31 10/31/24 01:00 10/31/24 01:30 Temperature Pulse Rate Pulse Rate [Pulse Oximeter] 74 75 70 Respiratory Rate 18 18 16 Blood Pressure Blood Pressure [Le ft Arm] 103/50 L 110/61 96/56 L Blood Pressure [Ri ght Upper Arm] Pulse Oximetry 95 92 93 Oxygen Delivery Me thod Room Air Room Air Room Air 10/31/24 02:00 10/31/24 02:30 10/31/24 03:00 Temperature 98.4 F Pulse Rate Pulse Rate [Pulse Oximeter] 73 69 Respiratory Rate 18 18 Blood Pressure Blood Pressure [Le ft Arm] 90/62 92/48 L 73/40 L Blood Pressure [Ri ght Upper Arm] Pulse Oximetry 92 94 Oxygen Delivery Me thod Room Air Room Air 10/31/24 03:00 10/31/24 03:02 10/31/24 03:10 Temperature Pulse Rate 81 Pulse Rate [Pulse Oximeter] Respiratory Rate Blood Pressure Blood Pressure [Le ft Arm] 104/63 112/64 Blood Pressure [Ri ght Upper Arm] Pulse Oximetry Oxygen Delivery Me thod 10/31/24 03:30 10/31/24 04:00 10/31/24 04:30 Temperature Pulse Rate Pulse Rate [Pulse Oximeter] 78 82 79 Respiratory Rate 16 16 18 Blood Pressure Blood Pressure [Le ft Arm] 96/48 L 92/56 L 101/60 Blood Pressure [Ri ght Upper Arm] Pulse Oximetry 92 90 90 Oxygen Delivery Me thod Room Air Room Air Room Air 10/31/24 05:00 10/31/24 05:30 10/31/24 06:00 Temperature 98.0 F Pulse Rate Pulse Rate [Pulse Oximeter] 82 85 82 Respiratory Rate 18 18 Blood Pressure Blood Pressure [Le ft Arm] 108/64 99/62 107/62 Blood Pressure [Ri ght Upper Arm] Pulse Oximetry 90 92 92 Oxygen Delivery Me thod Room Air Room Air Room Air 10/31/24 06:30 10/31/24 07:01 10/31/24 07:13 Temperature 98.0 F Pulse Rate 66 Pulse Rate [Pulse Oximeter] 90 77 Respiratory Rate 16 Blood Pressure Blood Pressure [Le ft Arm] 101/65 106/60 Blood Pressure [Ri ght Upper Arm] Pulse Oximetry 91 90 Oxygen Delivery Me thod Room Air Room Air 10/31/24 07:30 10/31/24 08:00 10/31/24 08:30 Temperature 98.3 F Pulse Rate Pulse Rate [Pulse Oximeter] 93 87 96 Respiratory Rate 20 Blood Pressure Blood Pressure [Le ft Arm] 112/75 101/63 105/55 L Blood Pressure [Ri ght Upper Arm] Pulse Oximetry 92 Oxygen Delivery Me thod Room Air 10/31/24 08:32 10/31/24 09:00 10/31/24 09:30 Temperature Pulse Rate 83 Pulse Rate [Pulse Oximeter] 97 86 Respiratory Rate Blood Pressure Blood Pressure [Le ft Arm] 117/68 103/57 L Blood Pressure [Ri ght Upper Arm] Pulse Oximetry Oxygen Delivery Me thod 10/31/24 10:00 10/31/24 11:00 10/31/24 11:53 Temperature 98.4 F Pulse Rate 89 Pulse Rate [Pulse Oximeter] 88 102 H Respiratory Rate 20 Blood Pressure Blood Pressure [Le ft Arm] 93/68 122/79 Blood Pressure [Ri ght Upper Arm] Pulse Oximetry 96 Oxygen Delivery Me thod Room Air 10/31/24 13:54 Temperature 98.9 F Pulse Rate Pulse Rate [Pulse Oximeter] 101 H Respiratory Rate 18 Blood Pressure Blood Pressure [Le ft Arm] 109/66 Blood Pressure [Ri ght Upper Arm] Pulse Oximetry 96 Oxygen Delivery Me thod Room Air Labs Labs: Laboratory Results - last 24 hr 10/30/24 10/30/24 10/31/24 17:50 21:33 06:43 WBC 11.10 H RBC 3.62 L Hgb 11.0 L Hct 33.7 L MCV 93 MCH 30 MCHC 33 Plt Count 202 INR 1.51 H Sodium 139 Potassium 3.4 L Chloride 106 Carbon Dioxide 26 Anion Gap 7 BUN 17 Creatinine 1.2 Estimated Creat Clear 47.60 Estimated GFR 59 Glucose 81 Lactate 2.1 H 1.0 Calcium 7.5 L Magnesium 2.0 Total Bilirubin 0.8 Direct Bilirubin 0.3 AST 59 H ALT 23 Alkaline Phosphatase 80 C-Reactive Protein 5.8 H Total Protein 6.7 Albumin 3.5 Lipase 121 Procalcitonin 37.90 H 33.30 H Imaging MRI of right foot: Radiologist's impression: 1. Ulceration at the plantar and lateral aspect of the 5th MTP joint. Minimal reactive edema in the head of the 5th metatarsal. No subcutaneous abscess, septic arthritis or osteomyelitis. 2. Diffuse subcutaneous edema in the toes and foot. 3. Degenerative changes in multiple MTP and TMT joints. 4. Diffuse muscular atrophy and edema.
--- NOTE | 2024-10-31 14:58 | PC.SOCIAL ---
Discharge planning: Pt was sent to the hospital from [facility]. Pt was initially on a bed hold at [facility], but now has given up the bed and plans to go home after discharge from the hospital. Pt said that he has chair lifts in his house on both flights of stairs that go upstairs and downstairs. Pt has no concerns about returning home after discharge. Social work to follow-up as needed.
[2024-10-31] MEDS: WARFARIN 5 MG TABLET 7.5 MG PO (17:00)
[2024-10-31] MEDS: METOPROLOL TARTRATE 50 MG TABLET PO ×2 (17:00→22:20)
--- NOTE | 2024-10-31 21:14 | P.PODCN_ITS ---
[facility] - Podiatry Data of Consult Date Seen: 10/31/24 Patient: [facility] Patient Consult date: 10/31/24 Requesting physician: iAxa Edwards MD Primary care provider: Antione Mojica MD Consult Narrative Reason for consult: Diabetic ulceration with infection right foot Narrative: Patient seen bedside today for evaluation of right foot ulceration. He has been hospitalized multiple times in the last two months at different hospitals. He missed an appointment in clinic with me for the ulcerations due to recent hospitalization. He does not have any pain and has not known about worsening foot infection. He is seen today with his sons present. 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 Patient was sent to the ED from [facility] where labs were drawn today with an elevated WBC. Only complaint patient can offer is a decreased appetite. Otherwise denies headache or dizziness. Denies recent fevers or chills. Denies chest pain or shortness of breath. Denies cough or congestion. Denies abdominal pain, nausea, vomiting or diarrhea. Had a normal bowel movement this morning. Denies flank pain. Denies change in urination or UTI symptoms. Denies extremity pain. In the ED, patient was noted to have a WBC of 16.64, a lactate of 2.1, and a procalcitonin of 37.9. Urinalysis essentially unremarkable. CT c hest/abdomen/pelvis essentially unremarkable for acute infectious etiology. BC x2 and urine culture are pending. Patient noted to be hypotensive, with SBP in the 80s, MAP > 63. Patient was started on IV vancomycin and Zosyn. Patient is a nonsmoker. Drinks 1 beer maybe per week. Request to be DNR/DNI. Of note, patient hospitalized at [facility] 09/23-09/26 with thrombolytics stroke to the left occipital lobe. Discharged to [facility] for cares. Hospitalized 10/07-10/15 at [facility] with mechanical small bowel obstruction which resolved with conservative therapy. cc:: CC: Aixa Edwards MD Review of Systems Status of ROS: Reports: 10 or more systems reviewed and unremarkable except as noted in History and below [facility] Medical History (Updated 10/31/24 @ 15:08 by Maurice Yanez MD) Cardiomegaly ?I51.7 - Cardiomegaly (ICD-10) Basal cell carcinoma ?C44.91 - Basal cell carcinoma of skin, unspecified (ICD-10) SBO (small bowel obstruction) ?K56.609 - Unspecified intestinal obstruction, unspecified as to partial versus complete obstruction (ICD-10) Obesity (BMI 30-39.9) ?E66.9 - Obesity, unspecified (ICD-10) Hyperlipidemia ?E78.5 - Hyperlipidemia, unspecified (ICD-10) Atherosclerotic heart disease of [place] coronary artery without angina pectoris ?I25.10 - Atherosclerotic heart disease of [place] coronary artery without angina pectoris (ICD-10) Ischemic stroke ?I63.9 - Cerebral infarction, unspecified (ICD-10) Hypertension ?I10 - Essential (primary) hypertension (ICD-10) Atrial fibrillation ?I48.91 - Unspecified atrial fibrillation (ICD-10) (HFpEF) heart failure with preserved ejection fraction ?I50.30 - Unspecified diastolic (congestive) heart failure (ICD-10) Social History What is your current living situation?: I presently have a place to live Problems where you live: no known problems Problems where you live details: na In the past 12 months, utilities in danger of being shut off: no In the past 12 mos, have been you worried that your food would run out before you had money to buy more?: never true In the past 12 mos, the food you bought just didn't last and you didn't have money to buy more?: never true Smoking Status: Never smoker Do you use any of these nicotine containing products: None How often do you have a drink containing alcohol: monthly or less Alcohol type: beer How many standard drinks containing alcohol do you have on a typical day: 1 or 2 How often do you have six or more drinks on one occasion: Never AUDIT-C Alcohol total score: 1 Non-prescribed substance use: denies use How often does anyone, including family, friends and others, physically hurt you : never How often does anyone, including family, friends and others, insult or talk down to you: never How often does anyone, including family, friends and others, threaten you with harm: never How often does anyone, including family, friends and others, scream or curse at you: never Exam Narrative: Exam Narrative: General: no distress. Vascular: Palpable pedal pulses bilateral. CFT <3secs. Neuro: diminished sensation to light touch. Msk: hammertoe deformities of digits 1-5 bilateral. Muscle strength 5/5 all quadrants. Derm: right foot with hyperkeratotic buildup plantar 5th metatarsal head. there is a central ulceration measures 5mm. after debridement the ulceration measures 2.4cm x 1.5cm. No exposed bone. no purulence. subcutaneous tissue with granulation tissue to the base of the wound. erythema to the dorsal foot without fluctuance or induration. Foot warm to touch. MRI right foot: no abscess, no septic joint, no osteomyelitis. Labs: CRP 5.8 WBC (4.50-11.00?K /uL) 16.64?H 11.10?H RBC (4.30-5.90?m/ uL) 4.22?L 3.62?L Hgb (13.5-17.5?gm /dL) 12.8?L 11.0?L Hct (37.0-53.0?%) 38.9 33.7?L MCV (80-100?fL) 92 93 MCH (26-34?pg) 30 30 MCHC (32-36?gm/dL ) 33 33 RDW Coeff of [place] (11.5-15.5?%) 15.3 Plt Count (140-44 0?K/uL) 250 202 Neut % (Auto) (42 .0-72.0?%) 81.0?H Lymph % (Auto) (2 0-44?%) 11.5?L [place] % (Auto) (0. 0-11.0?%) 7.2 Eos % (Auto) (0.0 -7.0?%) 0.0 Baso % (Auto) (0. 0-3.0?%) 0.1 Neut # (Auto) (1. 7-7.0?K/uL) 13.50?H Lymph # (Auto) (0 .90-2.90?K/uL) 1.90 [place] # (Auto) (0. 00-0.90?K/UL)y 1.20?H Eos # (Auto) (0.0 0-0.50?K/uL) 0.00 Baso # (Auto) (0. 00-0.30?K/uL) 0.00 Abs Immat Gran (au to) (0.00-0.30?K/ uL) 0.00 Imm/Tot Granulo (a uto) 0.2 A: Diabetic foot infection with ulceration right P: I reviewed the situation with Zeeshan. Thankfully there are no signs of osteomyelitis. recommend VASHE wet to dry dressing daily until infection improved. He is in need of sharp debridement. Following debridement sterile dressing placed. recommend minimal WB to the right foot to offload ulceration. Wound culture has already be obtained. No surgery planned at this time. Procedure: after verbal consent and sterile prep sharp excisional debridement performed with #15 scalpel. Skin and subcutaneous tissue excised back to healthy bleeding tissue. deepest layer of debridement was subcutaneous tissue. Const: Vital Signs, click to edit/add: Vital Signs - 24 hr 10/30/24 21:24 10/30/24 21:24 10/30/24 21:45 Temperature 98.0 F Pulse Rate Pulse Rate [Pulse Oximeter] 71 Respiratory Rate 16 16 16 Blood Pressure [Le ft Arm] 102/55 L Pulse Oximetry 94 97 94 Oxygen Delivery Me thod Room Air Room Air Room Air 10/30/24 22:00 10/30/24 22:30 10/30/24 23:00 Temperature 98.0 F 98 F Pulse Rate Pulse Rate [Pulse Oximeter] 71 67 67 Respiratory Rate 16 16 16 Blood Pressure [Le ft Arm] 81/57 L 86/53 L Pulse Oximetry 92 92 Oxygen Delivery Me thod Room Air Room Air 10/30/24 23:00 10/30/24 23:17 10/30/24 23:21 Temperature Pulse Rate 73 Pulse Rate [Pulse Oximeter] 81 74 Respiratory Rate 18 18 Blood Pressure [Le ft Arm] 102/59 L 101/53 L Pulse Oximetry 93 93 Oxygen Delivery Me thod Room Air Room Air 10/30/24 23:30 10/31/24 00:00 10/31/24 00:31 Temperature 97.5 F L Pulse Rate Pulse Rate [Pulse Oximeter] 63 76 74 Respiratory Rate 18 16 18 Blood Pressure [Le ft Arm] 93/51 L 102/54 L 103/50 L Pulse Oximetry 94 95 95 Oxygen Delivery Me thod Room Air Room Air Room Air 10/31/24 01:00 10/31/24 01:30 10/31/24 02:00 Temperature 98.4 F Pulse Rate Pulse Rate [Pulse Oximeter] 75 70 73 Respiratory Rate 18 16 18 Blood Pressure [Le ft Arm] 110/61 96/56 L 90/62 Pulse Oximetry 92 93 92 Oxygen Delivery Me thod Room Air Room Air Room Air 10/31/24 02:30 10/31/24 03:00 10/31/24 03:00 Temperature Pulse Rate 81 Pulse Rate [Pulse Oximeter] 69 Respiratory Rate 18 Blood Pressure [Le ft Arm] 92/48 L 73/40 L Pulse Oximetry 94 Oxygen Delivery Me thod Room Air 10/31/24 03:02 10/31/24 03:10 10/31/24 03:30 Temperature Pulse Rate Pulse Rate [Pulse Oximeter] 78 Respiratory Rate 16 Blood Pressure [Le ft Arm] 104/63 112/64 96/48 L Pulse Oximetry 92 Oxygen Delivery Me thod Room Air 10/31/24 04:00 10/31/24 04:30 10/31/24 05:00 Temperature Pulse Rate Pulse Rate [Pulse Oximeter] 82 79 82 Respiratory Rate 16 18 18 Blood Pressure [Le ft Arm] 92/56 L 101/60 108/64 Pulse Oximetry 90 90 90 Oxygen Delivery Me thod Room Air Room Air Room Air 10/31/24 05:30 10/31/24 06:00 10/31/24 06:30 Temperature 98.0 F 98.0 F Pulse Rate Pulse Rate [Pulse Oximeter] 85 82 90 Respiratory Rate 18 16 Blood Pressure [Le ft Arm] 99/62 107/62 101/65 Pulse Oximetry 92 92 91 Oxygen Delivery Me thod Room Air Room Air Room Air 10/31/24 07:01 10/31/24 07:13 10/31/24 07:30 Temperature 98.3 F Pulse Rate 66 Pulse Rate [Pulse Oximeter] 77 93 Respiratory Rate 20 Blood Pressure [Le ft Arm] 106/60 112/75 Pulse Oximetry 90 92 Oxygen Delivery Me thod Room Air Room Air 10/31/24 08:00 10/31/24 08:30 10/31/24 08:32 Temperature Pulse Rate 83 Pulse Rate [Pulse Oximeter] 87 96 Respiratory Rate Blood Pressure [Le ft Arm] 101/63 105/55 L Pulse Oximetry Oxygen Delivery Me thod 10/31/24 09:00 10/31/24 09:30 10/31/24 10:00 Temperature Pulse Rate Pulse Rate [Pulse Oximeter] 97 86 88 Respiratory Rate Blood Pressure [Le ft Arm] 117/68 103/57 L 93/68 Pulse Oximetry Oxygen Delivery Me thod 10/31/24 11:00 10/31/24 11:53 10/31/24 13:54 Temperature 98.4 F 98.9 F Pulse Rate 89 Pulse Rate [Pulse Oximeter] 102 H 101 H Respiratory Rate 20 18 Blood Pressure [Le ft Arm] 122/79 109/66 Pulse Oximetry 96 96 Oxygen Delivery Me thod Room Air Room Air 10/31/24 15:04 10/31/24 16:32 10/31/24 20:20 Temperature 98.7 F 98.9 F Pulse Rate 99 Pulse Rate [Pulse Oximeter] 89 89 Respiratory Rate 16 16 Blood Pressure [Le ft Arm] 103/52 L 118/62 Pulse Oximetry 93 94 Oxygen Delivery Me thod Room Air Room Air Nail Debridement Qualifies If: Qualifiers If:: A patient qualifies for nail debridement if they have: 1 class A finding (Q7) 2 class B findings (Q8) OR 1 class B & 2 class C findings in addition to a primary condition (Q9)
[2024-10-31] MEDS: SENNOSIDES 1 TAB TABLET 8.6 TAB PO (22:24)
--- NOTE | 2024-10-31 22:50 | PC.NURSE ---
Pt pleasant and cooperative. Up I in his room. He states no pain, L foot dressing CDI. VSS.
[2024-11-01] VITALS (10 sets, daily range): BP systolic 120–148; BP diastolic 79–91; PULSE 58–106; RESP 16–20; TEMP 36.6–37.1; O2SAT 94–95; BMI 30.2
[2024-11-01] MEDS: PIPERACILLIN/TAZOBACTAM 3.375 GM in 0.9 % SODIUM CHLORIDE Mini-bag 100 ML IVPB ×2 (02:17→07:49)
--- NOTE | 2024-11-01 06:35 | PC.NURSE ---
Pt is alert and oriented x3. Afebrile. Pt?s right foot dressing is CDI. Pt denies pain, chest pain, SOB, and N/V. Pt is up SBA with walker, voiding and tolerating a regular diet. ?
[2024-11-01 07:10] LABS: Hematocrit 35.7 % (37.0-53.0); Hemoglobin* 11.6 gm/dL (13.5-17.5); Mean Corpuscular HGB Conc 33 gm/dL (32-36); Mean Corpuscular Hemoglobin 30 pg (26-34); Mean Corpuscular Volume 94 fL (80-100); Platelet Count* 200 K/uL (140-440); Red Blood Count 3.81 m/uL (4.30-5.90); White Blood Count* 7.81 K/uL (4.50-11.00)
[2024-11-01 07:13] LABS: Slide Review Reflex No
[2024-11-01 07:26] LABS: Chloride* 111 mmol/L (96-114); Potassium* 3.6 mmol/L (3.6-5.1); Sodium* 138 mmol/L (135-149)
[2024-11-01 07:29] LABS: Est. Creatinine Clearance* 57.12; Estimated Glomerular Filt Rate 73 ml/min
[2024-11-01 07:30] LABS: Anion Gap 4 mEq/L (7-15); Blood Urea Nitrogen* 11 mg/dL (7-30); Calcium* 8.1 mg/dL (8.4-10.6); Carbon Dioxide* 23 mmol/L (20-32); Glucose* 104 mg/dL (60-115)
[2024-11-01 07:32] LABS: C Reactive Protein* 3.1 mg/dL (0.5-1.0)
[2024-11-01 07:39] LABS: INR 1.42 (0.91-1.10); Prothrombin Time 18.3 Seconds
[2024-11-01] MEDS: DIGOXIN 125 MCG TABLET PO (08:54)
[2024-11-01] MEDS: METOPROLOL TARTRATE 50 MG TABLET PO ×2 (08:54→20:38)
[2024-11-01] MEDS: SIMVASTATIN 40 MG TABLET 80 MG PO (08:54)
[2024-11-01] MEDS: GLIMEPIRIDE 1 MG TABLET 2 MG PO (08:54)
[2024-11-01] MEDS: DOXYCYCLINE HYCLATE 100 MG PO ×2 (08:54→20:38)
[2024-11-01] MEDS: SODIUM CHLORIDE 0.9 % (FLUSH) 10 ML SYRINGE 5 ML IVF ×2 (08:54→20:38)
[2024-11-01] MEDS: FUROSEMIDE 40 MG TABLET PO (08:54)
--- NOTE | 2024-11-01 12:39 | P.IMPN_ITS ---
Progress Note: A&P Assessment and plan (1) Diabetic foot ulcer: Problem details: -plantar surface right foot. Mild erythema noted dorsal aspect -evaluated by Podiatry at [facility] during hospitalization and of September. Both of these were debrided. They did not appear infected clinically or by x-ray. The fifth MTPJ callus did probe to 0.3 cm after debridement. He had palpable pedal pulses. Recommending boot and follow-up with Dr. Garcia montejo as scheduled on 11/22/2023 in [place]. -MRI obtained 10/31/2024 demonstrated the followin. Ulceration at the plantar and lateral aspect of the 5th MTP joint. Minimal reactive edema in the head of the 5th metatarsal. No subcutaneous abscess, septic arthritis or osteomyelitis. 2. Diffuse subcutaneous edema in the toes and foot. 3. Degenerative changes in multiple MTP and TMT joints. 4. Diffuse muscular atrophy and edema. -podiatry consult obtained with bedside debridement undertaken -discontinue vancomycin and Zosyn for now as the wound culture and blood culture are still negative at 72 hours -empirically start doxycycline 100 mg p.o. b.i.d. while awaiting final wound culture results. Status: Acute (2) Sepsis: Problem details: -WBC 16.64 with left shift, lactate 2.1 improved to 1.0 following IVF, SBP < 90 -source not yet identified. CXR, CT chest abdomen pelvis without acute etiology. UA unremarkable. Suspect possible source from right foot or possible bacteremia -continue IV vancomycin and Zosyn -BC x2 pending, UC pending -received 3 L IVF, continue maintenance fluids 100 mL, 250 mL bolus p.r.n. monitoring for fluid overload -Sepsis resolved. Saline locked IV re-start him on a diet, which he is tolerating. -11/01/24 WBC 7.8 Status: Acute (3) Diabetes type 2: Problem details: -most recent A1c 6.3 -hold metformin, continue glimepiride -glucose checks ACHS, ISS Status: Acute (4) Anticoagulated on Coumadin: Problem details: -pharmacy to dose. Status: Acute (5) Atrial fibrillation: Problem details: -continue digoxin -continue warfarin, pharmacy to dose. INR 1.6 on admission. -telemetry -restarted metoprolol but at a much lower dose of 50 mg p.o. b.i.d. compared to his usual 100 mg p.o. b.i.d. and monitor Status: Acute (6) (HFpEF) heart failure with preserved ejection fraction: Problem details: Echocardiogram 09/24/2024 Final Impressions: 1. Normal LV size, borderline wall thickness, estimated EF of 55 - 60%. 2. Normal RV size and systolic function. 3. Severe biatrial enlargement. 4. 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 5. The mitral valve is normal, moderate regurgitation. 6. Moderate-severe tricuspid regurgitation. 7. IVC is not well-visualized: unable to estimate RA and PA pressures. 8. 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 -monitor for fluid overload in setting of fluid resuscitation. -restarted furosemide 11/01/24 Status: Acute (7) Hyperlipidemia: Problem details: -continue statin Status: Acute Plan 1. Continue to monitor patient at least 24 more hours. 2. On much lower doses of antihypertensive and rate control medications blood pressures and heart rates continue to be well managed at this time. 3. Reviewed with patient. Answered his questions. He is agreeable. 4. Physical therapy and occupational therapy to assist with evaluating and treating an effort to help patient offload right lower extremity as much as po ssible. 5. Will need follow up with Podiatry in outpatient setting. 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 ?Patient was sent to the ED from [facility] where labs were drawn today with an elevated WBC. Only complaint patient can offer is a decreased appetite. Otherwise denies headache or dizziness. Denies recent fevers or chills. Denies chest pain or shortness of breath. Denies cough or congestion. Denies abdominal pain, nausea, vomiting or diarrhea. Had a normal bowel movement this morning. Denies flank pain. Denies change in urination or UTI symptoms. Denies extremity pain. ?In the ED, patient was noted to have a WBC of 16.64, a lactate of 2.1, and a procalcitonin of 37.9. Urinalysis essentially unremarkable. CT chest/ab domen/pelvis essentially unremarkable for acute infectious etiology. BC x2 and urine culture are pending. Patient noted to be hypotensive, with SBP in the 80s, MAP > 63. Patient was started on IV vancomycin and Zosyn. ?Patient is a nonsmoker. Drinks 1 beer maybe per week. Request to be DNR/DNI. ?Of note, patient hospitalized at [facility] 09/23-09/26 with thrombolytics stroke to the left occipital lobe. Discharged to [facility] for [facility]. Hospitalized 10/07-10/15 at [facility] with mechanical small bowel obstruction which resolved with conservative therapy.? Hospital day 3. Generally speaking he feels improved. Denies any pain or other concerns. Tolerating being off of the vancomycin and piperacillin IV. Still waiting for wound culture results. Exam Narrative: Exam Narrative: Examined patient in his hospital room. Appears comfortable no acute distress. Vision and hearing are adequate. Alert and oriented x3. Lungs are clear to auscultation. Heart tones with chaotic rhythm. Normal S1-S2. Abdomen with active bowel sounds, soft, nontender. Extremities with trace edema. Right sub 5th metatarsal surgical site is clean and dry. Const: Vital Signs, click to edit/add: Vital Signs - 24 hr 10/31/24 13:54 10/31/24 15:04 10/31/24 16:32 Temperature 98.9 F 98.7 F Pulse Rate 99 Pulse Rate [Pulse Oximeter] 101 H 89 Respiratory Rate 18 16 Blood Pressure [Le ft Arm] 109/66 103/52 L Pulse Oximetry 96 93 Oxygen Delivery Me thod Room Air Room Air 10/31/24 19:25 10/31/24 20:20 10/31/24 23:55 Temperature 98.9 F 98.3 F Pulse Rate 71 Pulse Rate [Pulse Oximeter] 89 97 Respiratory Rate 16 20 Blood Pressure [Le ft Arm] 118/62 137/91 H Pulse Oximetry 94 93 Oxygen Delivery Me thod Room Air Room Air 10/31/24 23:55 11/01/24 00:17 11/01/24 02:17 Temperature 98.4 F Pulse Rate 83 Pulse Rate [Pulse Oximeter] 97 89 Respiratory Rate 20 Blood Pressure [Le ft Arm] 132/79 Pulse Oximetry 94 Oxygen Delivery Me thod Room Air 11/01/24 07:31 11/01/24 07:48 11/01/24 08:54 Temperature 98.5 F Pulse Rate 89 106 H Pulse Rate [Pulse Oximeter] 90 Respiratory Rate 16 Blood Pressure [Le ft Arm] 148/88 H Pulse Oximetry 95 Oxygen Delivery Me thod Room Air 11/01/24 11:28 Temperature 98.7 F Pulse Rate Pulse Rate [Pulse Oximeter] 78 Respiratory Rate 18 Blood Pressure [Le ft Arm] 120/81 Pulse Oximetry 94 Oxygen Delivery Me thod Room Air Labs Labs: Laboratory Results - last 24 hr 11/01/24 06:42 WBC 7.81 RBC 3.81 L Hgb 11.6 L Hct 35.7 L MCV 94 MCH 30 MCHC 33 Plt Count 200 INR 1.42 H Sodium 138 Potassium 3.6 Chloride 111 Carbon Dioxide 23 Anion Gap 4 L BUN 11 Creatinine 1.0 Estimated Creat Clear 57.12 Estimated GFR 73 Glucose 104 Calcium 8.1 L C-Reactive Protein 3.1 H Procalcitonin 17.20 H
[2024-11-01] MEDS: LACTOBACILLUS ACIDOPHILUS 1 TABLET 2 TAB PO ×2 (13:33→17:27)
--- NOTE | 2024-11-01 14:48 | PC.NURSE ---
SPOKE WITH DR. NEGRON VIA PHONE PER REQUEST OF PHYSICAL THERAPY, PATIENT CURRENT ORDER IS FOR MINIMAL WEIGHT BEARING TO RIGHT LOWER EXTREMITY AFTER WORKING WITH PHYSICAL THERAPY PATIENT WAS UNABLE TO KEEP WEIGHT AT A MINIMUM, PER DR. NEGRON ENCOURAGE PATIENT TO PUT MOST WEIGHT AT THE HEEL AND TO TRY AND KEEP WEIGHT TO RIGHT LOWER EXTREMITY TO MINIMAL WEIGHT BEST POSSIBLE, UPDATED BOTH PT AND NURSE.
--- NOTE | 2024-11-01 16:26 | PC.SOCIAL ---
Discharge planning: carnival worker spoke with pt's son, Miguel A, today and asked if he or his brother would be able to provide 24 hour supervision for his father if he discharges home from the hospital. Miguel A said that he would talk with his brother, edwige Blevins about a plan, but he thought between the two of them taking turns they should be able to stay with him 24 hours a day. carnival worker explained that he would also go home with home care for nursing, PT/OT and possibly JOINT C[employer]TER. carnival worker will check-in with Miguel A again tomorrow morning after rounds to again verify that someone can stay with their father 13/06. Social work to follow-up as needed.
--- NOTE | 2024-11-01 17:26 | W.PM.PODPN ---
Podiatry-PN: Subj Subjective Time Seen by Provider: 17:15 Date Seen: 11/01/24 Interval history: Patient seen bedside this evening. He is doing well. He states he did struggle to keep weight off the ulcer site recurring physical therapy but felt better with heel weight-bearing. He would like to go home. Denies any fever chills nausea vomiting. Exam Narrative: Exam Narrative: General: no distress. Vascular: Palpable pedal pulses bilateral. CFT <3secs. Neuro: diminished sensation to light touch. Msk: hammertoe deformities of digits 1-5 bilateral. Muscle strength 5/5 all quadrants. Derm: right foot with ulceration measuring 2.4cm x 1.5cm. No exposed bone. no purulence. subcutaneous tissue with granulation tissue to the base of the wound. erythema to the dorsal improved foot without fluctuance or induration. Foot warm to touch. MRI right foot: no abscess, no septic joint, no osteomyelitis. Labs: White blood cell count 7.81, CRP 3.1 A: Diabetic foot infection with ulceration right P: Significant improvement the right foot. Ulcer site is healing well with increased granulation tissue and surrounding tissue and skin improvement. No underlying tracking. No purulence or drainage. Recommend Mepilex border dressing changed daily. Weightbearing as tolerated with pressure focused to the heel. He will need offloading shoe once he was seen in clinic next week. For now a surgical shoe would suffice. Plan is to follow up with myself next week [facility]. Antibiotics per hospitalist. Const: Vital Signs, click to edit/add: Vital Signs - 24 hr 10/31/24 19:25 10/31/24 20:20 10/31/24 23:55 Temperature 98.9 F 98.3 F Pulse Rate 71 Pulse Rate [Pulse Oximeter] 89 97 Respiratory Rate 16 20 Blood Pressure [Le ft Arm] 118/62 137/91 H Pulse Oximetry 94 93 Oxygen Delivery Me thod Room Air Room Air 10/31/24 23:55 11/01/24 00:17 11/01/24 02:17 Temperature 98.4 F Pulse Rate 83 Pulse Rate [Pulse Oximeter] 97 89 Respiratory Rate 20 Blood Pressure [Le ft Arm] 132/79 Pulse Oximetry 94 Oxygen Delivery Me thod Room Air 11/01/24 07:31 11/01/24 07:48 11/01/24 08:54 Temperature 98.5 F Pulse Rate 89 106 H Pulse Rate [Pulse Oximeter] 90 Respiratory Rate 16 Blood Pressure [Le ft Arm] 148/88 H Pulse Oximetry 95 Oxygen Delivery Me thod Room Air 11/01/24 11:28 11/01/24 15:27 Temperature 98.7 F 98.7 F Pulse Rate Pulse Rate [Pulse Oximeter] 78 80 Respiratory Rate 18 18 Blood Pressure [Le ft Arm] 120/81 135/81 Pulse Oximetry 94 95 Oxygen Delivery Me thod Room Air Room Air Podiatry-PN: Obj Labs Labs: Laboratory Results - last 24 hr 11/01/24 06:42 WBC 7.81 RBC 3.81 L Hgb 11.6 L Hct 35.7 L MCV 94 MCH 30 MCHC 33 Plt Count 200 INR 1.42 H Sodium 138 Potassium 3.6 Chloride 111 Carbon Dioxide 23 Anion Gap 4 L BUN 11 Creatinine 1.0 Estimated Creat Clear 57.12 Estimated GFR 73 Glucose 104 Calcium 8.1 L C-Reactive Protein 3.1 H Procalcitonin 17.20 H
[2024-11-01] MEDS: WARFARIN 5 MG TABLET 7.5 MG PO (17:27)
[2024-11-02 02:38] VITALS: PULSE 67
[2024-11-02 03:21] VITALS: PULSE 72; RESP 16
[2024-11-02 07:13] LABS: Chloride* 108 mmol/L (96-114); Sodium* 139 mmol/L (135-149)
[2024-11-02 07:14] LABS: Potassium* 3.8 mmol/L (3.6-5.1)
[2024-11-02 07:16] LABS: Est. Creatinine Clearance* 57.12; Estimated Glomerular Filt Rate 73 ml/min
[2024-11-02 07:17] LABS: Anion Gap 3 mEq/L (7-15); Blood Urea Nitrogen* 9 mg/dL (7-30); Calcium* 8.4 mg/dL (8.4-10.6); Carbon Dioxide* 28 mmol/L (20-32); Glucose* 104 mg/dL (60-115)
[2024-11-02 07:20] LABS: C Reactive Protein* 1.4 mg/dL (0.5-1.0)
[2024-11-02 07:29] LABS: Hematocrit 36.3 % (37.0-53.0); Hemoglobin* 11.8 gm/dL (13.5-17.5); Mean Corpuscular HGB Conc 33 gm/dL (32-36); Mean Corpuscular Hemoglobin 30 pg (26-34); Mean Corpuscular Volume 93 fL (80-100); Platelet Count* 208 K/uL (140-440); Red Blood Count 3.92 m/uL (4.30-5.90); White Blood Count* 6.82 K/uL (4.50-11.00)
--- NOTE | 2024-11-02 07:30 | PC.NURSE ---
End of shift [id number]: A&O pleasant and cooperative. VSS. Pt denying pain. Up w/ SBA walker and GB. Tolerates well. Dressing to right foot c/d/i. Voiding adequate amounts. Pt is anxious to go home today. Using call light appropriately.
[2024-11-02 07:37] LABS: Slide Review Reflex No
[2024-11-02 07:40] LABS: INR 1.59 (0.91-1.10); Prothrombin Time 20.1 Seconds
[2024-11-02 08:41] VITALS: PULSE 83
[2024-11-02] MEDS: DOXYCYCLINE HYCLATE 100 MG PO (08:41)
[2024-11-02] MEDS: DIGOXIN 125 MCG TABLET PO (08:41)
[2024-11-02] MEDS: GLIMEPIRIDE 1 MG TABLET 2 MG PO (08:41)
[2024-11-02] MEDS: METOPROLOL TARTRATE 50 MG TABLET PO (08:41)
[2024-11-02] MEDS: SIMVASTATIN 40 MG TABLET 80 MG PO (08:41)
[2024-11-02] MEDS: FUROSEMIDE 40 MG TABLET PO (08:42)
[2024-11-02] MEDS: SODIUM CHLORIDE 0.9 % (FLUSH) 10 ML SYRINGE 5 ML IVF (08:42)
[2024-11-02] MEDS: SENNOSIDES 1 TAB TABLET PO (08:42)
[2024-11-02] MEDS: LACTOBACILLUS ACIDOPHILUS 1 TABLET 2 TAB PO (08:43)
[2024-11-02 10:06] VITALS: BP 142/75; PULSE 86; RESP 16; TEMP 36.7; O2SAT 93
[2024-11-02 10:08] VITALS: PULSE 94
--- NOTE | 2024-11-02 12:34 | PC.SOCIAL ---
Addendum entered and electronically signed by JEREMY Grewal 11/02/24 12:37: Discharge planning: [facility] to start possibly this or Tuesday the . Social work to follow-up as needed. Original Note: Discharge planning: Pt will discharge home today with help from his sons. caseworker also set-up home care through [facility] for snf/wound care, PT/OT and [employer]. Pt was thankful for the assistance. Social work to follow-up as needed.
--- NOTE | 2024-11-02 14:43 | PM.DS1 ---
DS: Providers Provider Date Seen: 11/02/24 Date of admission: 10/30/24 21:14 Primary care physician: Antione Mojica MD Admitting Clinician: Aixa Edwards MD Consults: 10/30/24 21:14 Consult to Physician [CONS] Urgent Comment: PODIATRY Consulting Provider: [facility], [facility] Has provider been notified: No Consult to [facility]icker [CONS] Routine Comment: Reason for Consult:: Social Service Consult 11/01/24 12:41 Consult to Physical Therapy [CONS] Routine Comment: Reason(s) for PT Consult:: Evaluate and Treat Any Restrictions?:: See Comment Comment: Minimal weight-bearing on right lower extremity 11/01/24 12:42 Consult to Occupational Therapy [CONS] Routine Comment: Reason(s) for OT Consult:: Difficulty Managing ADLs Any Restrictions?:: See Comment Comment: Minimal weight-bearing on right lower extremity Attending Physician on discharge: Maurice Yanez MD Date of Discharge: 11/02/24 DS: Diagnosis Discharge Diagnosis (1) Sepsis: Status: Acute Problem details: -WBC 16.64 with left shift, lactate 2.1 improved to 1.0 following IVF, SBP < 90 -source not yet identified. CXR, CT chest abdomen pelvis without acute etiology. UA unremarkable. Suspect possible source from right foot or possible bacteremia -continue IV vancomycin and Zosyn -BC x2 pending, UC pending -received 3 L IVF, continue maintenance fluids 100 mL, 250 mL bolus p.r.n. monitoring for fluid overload -Sepsis resolved. Saline locked IV re-start him on a diet, which he is tolerating. -11/01/24 WBC 7.8 (2) Diabetic foot ulcer: Status: Acute Problem details: -plantar surface right foot. Mild erythema noted dorsal aspect -evaluated by Podiatry at [facility] during hospitalization and of September. Both of these were debrided. They did not appear infected clinically or by x-ray. The fifth MTPJ callus did probe to 0.3 cm after debridement. He had palpable pedal pulses. Recommending boot and follow-up with Dr. Garcia montejo as scheduled on 11/22/2023 in [place]. -MRI obtained 10/31/2024 demonstrated the followin. Ulceration at the plantar and lateral aspect of the 5th MTP joint. Minimal reactive edema in the head of the 5th metatarsal. No subcutaneous abscess, septic arthritis or osteomyelitis. 2. Diffuse subcutaneous edema in the toes and foot. 3. Degenerative changes in multiple MTP and TMT joints. 4. Diffuse muscular atrophy and edema. -podiatry consult obtained with bedside debridement undertaken -discontinue vancomycin and Zosyn for now as the wound culture and blood culture are still negative at 72 hours -empirically start doxycycline 100 mg p.o. b.i.d. while awaiting final wound culture results. 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 INR 1.6 on admission. -telemetry -restarted metoprolol but at a much lower dose of 100 mg p.o. b.i.d. compared to his usual 200 mg p.o. b.i.d. and monitor (9) (HFpEF) heart failure with preserved ejection fraction: Status: Acute Problem details: Echocardiogram 09/24/2024 Final Impressions: 1. Normal LV size, borderline wall thickness, estimated EF of 55 - 60%. 2. Normal RV size and systolic function. 3. Severe biatrial enlargement. 4. 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 5. The mitral valve is normal, moderate regurgitation. 6. Moderate-severe tricuspid regurgitation. 7. IVC is not well-visualized: unable to estimate RA and PA pressures. 8. 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 -monitor for fluid overload in setting of fluid resuscitation. -restarted metoprolol and furosemide 11/01/24 (10) Anticoagulated on Coumadin: Status: Acute Problem details: -pharmacy to dose. (11) Hypotension: Status: Acute Problem details: -in setting of sepsis -history of hypotension in previous hospitalizations as well which responded to IVF -has received 3 L IVF, continue maintenance fluids, bolus p.r.n., monitoring for fluid overload -considered starting pressors, but was unnecessary (12) H/O: CVA (cerebrovascular accident): Status: Acute (13) Ischemic stroke: Status: Acute (14) Hyperlipidemia: Status: Acute Problem details: -continue statin (15) Obesity (BMI 30-39.9): Status: Acute (16) Pulmonary nodules: Status: Acute Problem details: -CT shows Few scattered punctate pulmonary nodules measuring up to 0.4 cm. Recommend follow-up CT chest in 3-6 months. (17) Lesion of liver: Status: Acute Problem details: -CT shows Indeterminate 1.9 cm hypodense lesion in segment 7 of the liver. Indeterminate adrenal nodules measuring up to 1.3 cm on the right. Recommend further evaluation with MRI, on a nonemergent basis. (18) Adrenal nodule: Status: Acute Problem details: -CT shows Indeterminate 1.9 cm hypodense lesion in segment 7 of the liver. Indeterminate adrenal nodules measuring up to 1.3 cm on the right. Recommend further evaluation with MRI, on a nonemergent basis. (19) Cognitive impairment: Status: Acute Problem details: -on 11/02/2024 MOCA was 20/30. Advise patient and family that patient on not to resume driving until such time as he has recessed specifically for this appropriately by his primary care physician and/or others. -informed patient and family that presently he requires 24 hour supervision, which family said they will provide. -home health care orders placed DS: Summary Hospital Course Hospital Course: Admission history of present illness: ?89 year old male past medical history significant for HFpEF, atrial fibrillation on chronic anticoagulation, hypertension, history of ischemic stroke, atherosclerotic heart disease of red cliff coronary artery without angina pectoralis, diabetes mellitus type 2, right foot ulcer, Dupuytren's contracture is admitted to the critical care unit from the ED for sepsis management. ?Patient was sent to the ED from [facility] where labs were drawn today with an elevated WBC. Only complaint patient can offer is a decreased appetite. Otherwise denies headache or dizziness. Denies recent fevers or chills. Denies chest pain or shortness of breath. Denies cough or congestion. Denies abdominal pain, nausea, vomiting or diarrhea. Had a normal bowel movement this morning. Denies flank pain. Denies change in urination or UTI symptoms. Denies extremity pain. ?In the ED, patient was noted to have a WBC of 16.64, a lactate of 2.1, and a procalcitonin of 37.9. Urinalysis essentially unremarkable. CT chest/abdomen/pelvis essentially unremarkable for acute infectious etiology. BC x2 and urine culture are pending. Patient noted to be hypotensive, with SBP in the 80s, MAP > 63. Patient was started on IV vancomycin and Zosyn. ?Patient is a nonsmoker. Drinks 1 beer maybe per week. Request to be DNR/DNI. ?Of note, patient hospitalized at [facility] 09/23-09/26 with thrombolytics stroke to the left occipital lobe. Discharged to [facility] for [facility]. Hospitalized 10/07-10/15 at [facility] with mechanical small bowel obstruction which resolved with conservative therapy.? In less than 24 hours we were able to discern that the source of the patient's sepsis was indeed his right foot diabetic foot ulcer. Wound culture was obtained. Results of wound culture are still pending as of 11/02/2024. Debridement was undertaken by Dr. Skelton, senior software developer. Patient will have additional follow-up with senior software developer in the outpatient setting hereafter. Emphasized importance of offloading. Did work with physical and occupational therapy in-hospital. Initiated surgical shoe use. For additional details please see the diagnosis section above. Time Spent with Patient Time attestation: Total time spent providing and/or coordinating discharge services: Exam Narrative: Exam Narrative: Examined patient in his hospital room. Appears comfortable no acute distress. Vision and hearing are adequate. Alert and oriented x3. Lungs are clear to auscultation. Heart tones with chaotic rhythm. Normal S1-S2. Abdomen with active bowel sounds, soft, nontender. Extremities with trace edema. Right sub 5th metatarsal surgical site is clean and dry. Const: Vital Signs, click to edit/add: Vital Signs - 24 hr 11/01/24 15:27 11/01/24 19:51 11/01/24 23:00 Temperature 98.7 F 97.9 F Pulse Rate Pulse Rate [Pulse Oximeter] 80 87 58 L Respiratory Rate 18 18 16 Blood Pressure [Le ft Arm] 135/81 135/91 H Pulse Oximetry 95 94 Oxygen Delivery Me thod Room Air Room Air 11/01/24 23:30 11/02/24 02:38 11/02/24 03:21 Temperature Pulse Rate 67 Pulse Rate [Pulse Oximeter] 72 Respiratory Rate 16 16 Blood Pressure [Le ft Arm] Pulse Oximetry Oxygen Delivery Me thod 11/02/24 08:41 11/02/24 10:06 11/02/24 10:08 Temperature 98.1 F Pulse Rate 83 94 Pulse Rate [Pulse Oximeter] 86 Respiratory Rate 16 Blood Pressure [Le ft Arm] 142/75 H Pulse Oximetry 93 Oxygen Delivery Me thod Room Air DS: Data Data Completed and Pending Labs on day of discharge: Labs from last 24 hours 11/02/24 06:30 WBC 6.82 RBC 3.92 L Hgb 11.8 L Hct 36.3 L MCV 93 MCH 30 MCHC 33 Plt Count 208 INR 1.59 H Sodium 139 Potassium 3.8 Chloride 108 Carbon Dioxide 28 Anion Gap 3 L BUN 9 Creatinine 1.0 Estimated Creat Clear 57.12 Estimated GFR 73 Glucose 104 Calcium 8.4 C-Reactive Protein 1.4 H Preliminary micro results at discharge 10/31/24 07:43 Wound Culture - Preliminary Foot Right Gram positive cocci Gram positive cocci#2 10/30/24 19:37 Blood Culture - Preliminary Blood NO GROWTH AFTER 48 HOURS 10/30/24 17:50 Blood Culture - Preliminary Blood NO GROWTH AFTER 48 HOURS Imaging MRI of right foot: Radiologist's impression: 1. Ulceration at the plantar and lateral aspect of the 5th MTP joint. Minimal reactive edema in the head of the 5th metatarsal. No subcutaneous abscess, septic arthritis or osteomyelitis. 2. Diffuse subcutaneous edema in the toes and foot. 3. Degenerative changes in multiple MTP and TMT joints. 4. Diffuse muscular atrophy and edema. Discharge Plan Discharge Disposition: Home w/ Parent or Adult Date of Admission: 10/30/24 21:14 Attending Provider on Discharge: Maurice Yanez Primary Care Provider: Antione Mojica Condition: Stable Anticipated Discharge Date/Time: 11/02/24 12:30 Discharge Medications: New metoprolol tartrate 100 mg tablet 100 mg PO BID Qty: 60 2RF warfarin 2.5 mg tablet 7.5 mg PO DAILY Qty: 60 2RF Rx Instructions: Dose of warfarin will continue to be adjusted as warranted with goal to maintain INR of 2-3 acetaminophen 325 mg Tablet 650 mg PO Q6H PRNQty: 30 0RF doxycycline hyclate 100 mg Tablet 100 mg PO BID 7 Days Qty: 14 0RF Continued furosemide 40 mg tablet 40 mg PO DAILY glimepiride 2 mg tablet 2 mg PO DAILY digoxin 125 mcg (0.125 mg) tablet 125 mcg PO DAILY simvastatin 80 mg tablet 80 mg PO HS senna 8.6 mg capsule 8.6 mg PO BID metformin 500 mg tablet 500 mg PO DAILY polyethylene glycol 3350 [Miralax] 17 gram/dose powder 17 g PO DAILY PRN Discontinued metoprolol tartrate 100 mg tablet 200 mg PO BID warfarin 5 mg tablet 5 - 7.5 mg PO DAILY Rx Instructions: MOST RECENT DOSE WAS 5MG 2X WEEK, 7.5 MG ALL OTHER DAYS enoxaparin 80 mg/0.8 mL syringe 80 mg subcut Q12H Patient Comments: UNTIL INR > 2 Discharge Orders: Discharge Order (Routine); Ordered 11/02/24 Ordered By: Maurice Yanez Patient Education: Metoprolol (By mouth), Doxycycline (By mouth), Acetaminophen (By mouth), Warfarin (By mouth), Heart Failure (DC), Foot Care for People with Diabetes (DC), Foot Ulcers in a Person with Diabetes (DC), Low-Sodium Diet (DC) Additional Instructions: 1. Follow up with Dr. Braden Skelton next week in [facility]; 2. Follow up with primary day care worker in the next week for reassessment of diabetes, heart failure, cognition; 3. Return to clinic or hospital sooner if needed; 4. Home care referral with PT, OT, Nursing, and home health aid - referral completed. His weight on day of discharge from the hospital is 98.5 Kg; 5. Weekly INR starting this coming Monday 11/05 at [facility] @1:50pm to adjust warfarin dose; 6. Final wound culture results are pending. For the time being continue with doxycycline 100 mg orally twice daily for the next 7 days. When final wound culture results become available, we might recommend adjustment of antibiotics; 7. Take an [id number] probiotic for the next 3 months. Follow the directions on the specific product; 8. Try to minimize weight bearing on affected right foot - work closely with Dr. Skelton to help achieve this, but for now use surgical shoe and walker. Activity Level: Activity as Tolerated and Use Walker Discharge Diet: Heart Healthy (2 gm sodium, low fat) Follow Up Appointments: Heath Alvarez DO [Referring] - 11/07/24 10:00 am ([facility] for follow up with PCP ) Braden Skelton DPM [Staff Physician] - 11/08/24 2:15 pm ([facility] for follow up with Dr. Skelton) Forms: [facility] Info Instructions
--- NOTE | 2024-11-02 15:27 | PC.NURSE ---
Discharge - Pt alert, oriented, cooperative and pleasant. Up with standby assistance and walker. Using surgical shoe per MD order, able to use appropriately. Tolerating RA, regular diet, and fluids. Eduction provided to patient and patient's son. Both verbalized understanding after RN clarifies details regarding medication changes and appointments. Denied pain. Dressing on R outer foot changed per MD order prior to discharge. Discharged to son's home with son via wheelchair at approximately 1310.
== END 2024-11-02 13:10 | disposition home health service (06) | DRG 622 ==
LOC: ED 19:04 → MEDSURG 23:31
PROVIDERS: Admitting Provider Physician Assistant; Emergency Provider Family Medicine; PCP Family Medicine; Visit Provider Family Medicine
DX: E11.621 Type 2 diabetes mellitus with foot ulcer (principal); A41.9 Sepsis, unspecified organism; I50.32 Chronic diastolic (congestive) heart failure; L97.419 Non-pressure chronic ulcer of right heel and midfoot with unspecified severity; L97.519 Non-pressure chronic ulcer of other part of right foot with unspecified severity; E11.42 Type 2 diabetes mellitus with diabetic polyneuropathy; E11.65 Type 2 diabetes mellitus with hyperglycemia; B95.61 Methicillin susceptible Staphylococcus aureus infection as the cause of diseases classified elsewhere; B95.2 Enterococcus as the cause of diseases classified elsewhere; I48.91 Unspecified atrial fibrillation; I11.0 Hypertensive heart disease with heart failure; I95.9 Hypotension, unspecified; Z79.01 Long term (current) use of anticoagulants; Z79.84 Long term (current) use of oral hypoglycemic drugs; E66.9 Obesity, unspecified; Z68.29 Body mass index [BMI] 29.0-29.9, adult; K76.9 Liver disease, unspecified; R91.8 Other nonspecific abnormal finding of lung field; E27.9 Disorder of adrenal gland, unspecified; I35.0 Nonrheumatic aortic (valve) stenosis; I36.1 Nonrheumatic tricuspid (valve) insufficiency; I34.0 Nonrheumatic mitral (valve) insufficiency; G31.84 Mild cognitive impairment of uncertain or unknown etiology; I25.10 Atherosclerotic heart disease of native coronary artery without angina pectoris; Z86.73 Personal history of transient ischemic attack (TIA), and cerebral infarction without residual deficits; E78.5 Hyperlipidemia, unspecified
CPT/HCPCS: 36415; 71046; 71260; 73720; 74177; 80048; 80076; 82962; 83605; 83690; 83735; 84145; 85027; 85610; 86140; 87040; 87070; 87186; 87205; 97116; 97162; 97165; 97530; 97535; 99285; 99291; A9270; A9575; J2543; J3370; J7030; J7050; Q9967